=== PATIENT | female | born 1955 | race Caucasian/White ===

== ENCOUNTER 2018-07-25 15:32 | Observation (INO) ==
--- NOTE | 2018-07-25 15:50 | Emergency Department Note ---
Disposition Clinical Impression: Suicidal ideation Failure to thrive Qualifiers: Failure to thrive age range: in adult Qualified Code(s): R62.7 - Adult failure to thrive Disposition: Still a Patient General Adult HPI - General Chief complaint: ED Psychiatric Symptoms Stated complaint: Refusing to eat Time Seen by Provider: 07/25/18 15:44 Source: EMS Limitations: no limitations - History of Present Illness Pain Scale: 0 Past Medical History - Past Medical History Medical history: Reports: no medical history, COPD Psychiatric history: Reports: anxiety, depression - Social History Smoking Status: Current every day smoker Smokeless Tobacco Status: No Alcohol use: Reports: none Drug use: Reports: none Physical Exam - General Limitations: no limitations General appearance: alert Course - Reevaluation(s) Reevaluation #1: ED attending Attestation note Patient was seen with the emergency medicine resident Keven Banerjee: I have independently evaluated the patient and have had [id number] contact with the patient. I have reviewed the history and physical, evaluation and management plan in addition to the pertinent laboratory, ancillary and imaging studies along with consultation recommendations if applicable. I agree with their evaluation, management and disposition.. Briefly: 62-year-old female by EMS for failure to thrive refusing to eat. Patient recently diagnosed with lupus with 72 pounds down normally 80lbs. Status suicidal ideations and her methotrexate to be "I am going to start myself to ". No known pre-existing mental health for eating disorders. Patient is thin and cachectic. Patient will get IV rehydration screening labs mental health consultation with disposition. Disposition pending. Time: 15:48 Vital Signs Temperature 98.2 F 07/25/18 15:38 Pulse Rate 85 07/25/18 15:38 Respiratory Rate 16 07/25/18 15:38 Blood Pressure 116/75 07/25/18 15:38 O2 Sat by Pulse Oximetry 94 07/25/18 15:38 Temperature 98.2 F 07/25/18 15:38 Pulse Rate 85 07/25/18 15:38 Respiratory Rate 16 07/25/18 15:38 Blood Pressure 116/75 07/25/18 15:38 O2 Sat by Pulse Oximetry 94 07/25/18 15:38 Oxygen Delivery Oxygen Delivery Room Air
[2018-07-25 16:18] LABS: Amphetamine Screen,Urine Negative ng/mL (Cutoff=1000); Barbiturate Screen,Urine Negative ng/mL (Cutoff=200); Benzodiazepines Screen,Urine Negative ng/mL (Cutoff=200); Cannabinoid Screen,Urine Negative ng/mL (Cutoff = 50); Cocaine Screen,Urine Negative ng/mL (Cutoff= 300); Opiate Screen,Urine Negative ng/mL (Cutoff=300); Phencyclidine Screen,Urine Negative ng/mL (Cutoff=25)
[2018-07-25 16:19] LABS: Bilirubin,Urine Small (Negative); Blood,Urine Negative (Negative); Clarity,Urine Clear (Clear); Color,Urine Dark Yellow (Yellow); Glucose,Urine (UA) Normal (Normal); Ketones,Urine Negative (Negative); Leukocyte Esterase,Urine Small (Negative); Nitrite,Urine Negative (Negative); Protein,Urine Trace mg/dL (Neg-Trace); Specific Gravity,Urine 1.027 (1.010-1.025); Urobilinogen,Urine Normal (Normal)
[2018-07-25 16:21] LABS: Bacteria,Urine None Seen per hpf (None-Few); Hyaline Casts,Urine None Seen per lpf (None-Few); Squamous Epithelial Cell,Urine Many per lpf (None-Few)
[2018-07-25 16:33] LABS: Basophils % 0.6 %; Eosinophils # 0.1 K/mcL (0.0-0.6); Eosinophils % 2.5 %; Hematocrit 45.7 % (35.3-44.9); Lymphocytes # 1.7 K/mcL (0.6-4.6); Lymphocytes % 52.7 %; Mean Corpuscular HGB Conc 32.8 g/dL (31.6-35.5); Mean Corpuscular Hemoglobin 28.8 pg (28.0-33.3); Mean Corpuscular Volume 87.9 fL (83.0-100.0); Mean Platelet Volume 9.8 fL (9.4-12.4); Monocytes # 0.4 K/mcL (0.0-1.3); Monocytes % 13.2 %; Platelet Count 169 K/mcL (140-400); Red Cell Distribution Width 15.5 % (11.5-14.5)
[2018-07-25 16:52] LABS: Acetaminophen 11 mcg/mL (10-20); Alanine Aminotransferase 11 Units/L (7-52); Albumin 3.8 g/dL (3.5-5.7); Albumin/Globulin Ratio 1.2 (1.1-2.2); Alkaline Phosphatase 57 Units/L (34-104); Aspartate Amino Transferase 23 Units/L (13-39); BUN/Creatinine Ratio 31 (6-26); Bilirubin,Total 0.4 mg/dL (0.3-1.0); Blood Urea Nitrogen 20 mg/dL (8-23); Carbon Dioxide 33 mEq/L (23-29); Chloride 102 mEq/L (98-107); Ethanol < 10 mg/dL (Less than 10); Globulin 3.1 g/dL (2.4-3.5); Glucose 90 mg/dL (70-105); Osmolality,Calculated 290 (280-300); Potassium 3.8 mEq/L (3.5-5.1); Salicylate < 2.5 mg/dL (15.0-30.0); Sodium 139 mEq/L (136-145); Total Protein 6.9 g/dL (6.4-8.9); eGFR For Non-African Americans > 60 (> 60)
--- NOTE | 2018-07-25 17:13 | Emergency Department Note ---
Disposition Clinical Impression: Suicidal ideation Failure to thrive Qualifiers: Failure to thrive age range: in adult Qualified Code(s): R62.7 - Adult failure to thrive Disposition: Admitted As Inpatient Condition: Good General Adult HPI - General Chief complaint: ED Psychiatric Symptoms Stated complaint: Refusing to eat Time Seen by Provider: 07/25/18 15:44 Source: patient, EMS Mode of arrival: EMS Limitations: no limitations Nursing Notes Reviewed: Yes Vital Signs Reviewed: Yes - History of Present Illness HPI Narrative: 62-year-old female with significant past medical history of COPD and lupus presenting to the emergency department chief complaint of failure to thrive and suicidal ideation. According to the patient her baseline weight is approximately 80 pounds. Over the past week to 2 weeks she has lost 8 pounds. She states that she has stopped wanting to eat because she just does not want to deal with her medical issues anymore. She denies homicidal ideation. Denies auditory or visual hallucinations. Denies any history of self-harm. Denies any history of hospitalizations for mental illness. Patient denies any chest pain, shortness of breath or other systemic symptoms. She does state when she eats she feels very full quickly and therefore has not wanted to eat at all. She states she normally drinks coffee throughout the day but that is it. Pain Scale: 0 - Related Data Allergies Allergy/AdvReac Type Severity Reaction Status Date / Time No Known Allergies Allergy Verified 07/25/18 15:48 All systems ED: reviewed and negative except as stated. Constitutional: Denies: fever, chills Eyes: Reports: as per HPI ENT ED: Reports: as per HPI Cardiovascular: Denies: chest pain, palpitations Respiratory: Denies: cough, dyspnea, wheezes Gastrointestinal: Denies: abdominal pain, vomiting, diarrhea Genitourinary: Reports: as per HPI Musculoskeletal: Reports: as per HPI Integumentary: Denies: rash, abrasion Neurological: Denies: weakness, numbness, paresthesias Psychiatric: Reports: depression, suicidal thoughts. Denies: homicidal thoughts , auditory hallucinations, visual hallucinations Endocrine: Reports: as per HPI Hematological/Lymphatic: Reports: as per HPI Allergic/Immunologic: Reports: as per HPI Past Medical History - Past Medical History Attestation: Yes The following information was validated with the patient. Medical history: Reports: no medical history, COPD Psychiatric history: Reports: anxiety, depression - Social History Smoking Status: Current every day smoker Smokeless Tobacco Status: No Alcohol use: Reports: none Drug use: Reports: none Physical Exam - General Limitations: no limitations General appearance: alert, cachectic - Head Head exam: atraumatic, normocephalic, normal inspection - Eye Eye exam: Present: normal appearance. Absent: scleral icterus, conjunctival injection - ENT ENT exam: mucous membranes dry - Neck Neck exam: Present: normal inspection, full ROM. Absent: tenderness, meningismus - Chest Chest inspection: Present: normal inspection, symmetric chest wall rise. Absent : tenderness, rash - Respiratory Respiratory exam: Present: normal lung sounds bilaterally. Absent: respiratory distress, wheezes - Cardiovascular Cardiovascular exam: Present: regular rate, normal rhythm, normal heart sounds - Abdominal Exam Abdominal exam: Present: soft, Non-Tender. Absent: distention, guarding, rebound - Extremities Exam Extremities exam: Present: normal inspection, full ROM - Neurological Exam Neurological exam: Present: alert, oriented X3 - Psychiatric Psychiatric exam: Present: depressed, flat affect, suicidal ideation. Absent: homicidal ideation - Skin Skin exam: Present: warm, intact Course Course Narrative: 62-year-old female presenting to the emergency department with chief complaint of failure to thrive and suicidal ideation. On physical exam patient is cachectic but otherwise within normal limits. Patient's vital signs stable. Patient has a flat, depressed affect in the room. Tearful during exam. We will obtain basic laboratory analysis and then consult our psychiatric services 1A for further evaluation. Disposition will be admission but pending psychiatric versus medical services. Patient agrees with this plan. - Reevaluation(s) Reevaluation #1: Patient's laboratory analysis baseline. No obvious abnormalities. 1A evaluated the patient feels that she does need psychiatric evaluation but needs medical attention first for her failure to thrive. We will plan to admit the patient for failure to thrive with hopes of disposition to psychiatric facility. I spoke with the hospitalist missionary coordinator who agrees to accept the patient at this time. Patient is alert and oriented 3 in the room with stable vital signs. Patient agrees with this plan. Vital Signs Temperature 98.2 F 07/25/18 15:38 Pulse Rate 85 07/25/18 15:38 Respiratory Rate 16 07/25/18 15:38 Blood Pressure 116/75 08/26/18 15:38 O2 Sat by Pulse Oximetry 94 07/25/18 15:38 Temperature 98.2 F 07/25/18 15:38 Pulse Rate 85 07/25/18 15:38 Respiratory Rate 16 07/25/18 15:38 Blood Pressure 116/75 07/25/18 15:38 O2 Sat by Pulse Oximetry 94 07/25/18 15:38 Oxygen Delivery Oxygen Delivery Room Air Medical Decision Making - Lab Data Result diagrams: 07/25/18 16:22 07/25/18 16:22 Lab Results 07/25/18 07/25/18 07/25/18 Range/Units 15:56 15:56 16:22 WBC 3.2 L (4.3-11.1) K/mcL RBC 5.20 H (3.82-4.97) M/mcL Hgb 15.0 (11.5-15.4) g/dL Hct 45.7 H (35.3-44.9) % MCV 87.9 (83.0-100.0) fL MCH 28.8 (28.0-33.3) pg MCHC 32.8 (31.6-35.5) g/dL RDW 15.5 H (11.5-14.5) % Plt Count 169 (140-400) K/mcL MPV 9.8 (9.4-12.4) fL Immature Gran % 0.0 (0-4) % Seg Neutrophils % 31.0 % Lymphocytes % 52.7 % Monocytes % 13.2 % Eosinophils % 2.5 % Basophils % 0.6 % Neutrophils # 1.0 L (1.6-8.9) K/mcL Lymphocytes # 1.7 (0.6-4.6) K/mcL Monocytes # 0.4 (0.0-1.3) K/mcL Eosinophils # 0.1 (0.0-0.6) K/mcL Basophils # 0.0 (0.0-0.2) K/mcL Sodium (136-145) mEq/L Potassium (3.5-5.1) mEq/L Chloride (98-107) mEq/L Carbon Dioxide (23-29) mEq/L BUN (8-23) mg/dL Creatinine (0.60-1.20) mg/dL Est GFR ( Amer) (> 60) Est GFR (Non-Af Amer) (> 60) BUN/Creatinine Ratio (6-26) Glucose (70-105) mg/dL Calculated Osmolality (280-300) Calcium (8.6-10.3) mg/dL Total Bilirubin (0.3-1.0) mg/dL AST (13-39) Units/L ALT (7-52) Units/L Alkaline Phosphatase (34-104) Units/L Serum Total Protein (6.4-8.9) g/dL Albumin (3.5-5.7) g/dL Globulin (2.4-3.5) g/dL Albumin/Globulin Ratio (1.1-2.2) Urine Color Dark Yellow (Yellow) Urine Clarity Clear (Clear) Urine pH 6.0 (5.0-8.0) pH Units Ur Specific [place] 1.027 H (1.010-1.025) Urine Protein Trace (Neg-Trace) mg/dL Urine Glucose (UA) Normal (Normal) mg/dL Urine Ketones Negative (Negative) mg/dL Urine Blood Negative (Negative) Urine Nitrite Negative (Negative) Urine Bilirubin Small H (Negative) Urine Urobilinogen Normal (Normal) mg/dL Ur Leukocyte Esterase Small H (Negative) Urine Microscopic RBC 5-15 H (0-3) per hpf Urine Microscopic WBC 5-15 H (0-3) per hpf Ur Squamous Epith Cells Many H (None-Few) per lpf Urine Bacteria None Seen (None-Few) per hpf Hyaline Casts None Seen (None-Few) per lpf Ur Culture Indicated? NO. A (NO) Salicylates (15.0-30.0) mg/dL Urine Opiates Screen Negative (Crenwh=091) ng/mL Acetaminophen (10-20) mcg/mL Ur Barbiturates Screen Negative (Muakno=476) ng/mL Ur Phencyclidine Scrn Negative (Cutoff=25) ng/mL Ur Amphetamines Screen Negative (Xmfcrk=1103) ng/mL U Benzodiazepines Scrn Negative (Bvwzmt=569) ng/mL Urine Cocaine Screen Negative (Cutoff= 300) ng/mL U Marijuana (THC) Screen Negative (Cutoff = 50) ng/mL Ur Drug Screen Interp See Below Ethyl Alcohol (Less than 10) mg/dL 07/25/18 Range/Units 16:22 WBC (4.3-11.1) K/mcL RBC (3.82-4.97) M/mcL Hgb (11.5-15.4) g/dL Hct (35.3-44.9) % MCV (83.0-100.0) fL MCH (28.0-33.3) pg MCHC (31.6-35.5) g/dL RDW (11.5-14.5) % Plt Count (140-400) K/mcL MPV (9.4-12.4) fL Immature Gran % (0-4) % Seg Neutrophils % % Lymphocytes % % Monocytes % % Eosinophils % % Basophils % % Neutrophils # (1.6-8.9) K/mcL Lymphocytes # (0.6-4.6) K/mcL Monocytes # (0.0-1.3) K/mcL Eosinophils # (0.0-0.6) K/mcL Basophils # (0.0-0.2) K/mcL Sodium 139 (136-145) mEq/L Potassium 3.8 (3.5-5.1) mEq/L Chloride 102 (98-107) mEq/L Carbon Dioxide 33 H (23-29) mEq/L BUN 20 (8-23) mg/dL Creatinine 0.65 (0.60-1.20) mg/dL Est GFR ( Amer) > 60 (> 60) Est GFR (Non-Af Amer) > 60 (> 60) BUN/Creatinine Ratio 31 H (6-26) Glucose 90 (70-105) mg/dL Calculated Osmolality 290 (280-300) Calcium 9.0 (8.6-10.3) mg/dL Total Bilirubin 0.4 (0.3-1.0) mg/dL AST 23 (13-39) Units/L ALT 11 (7-52) Units/L Alkaline Phosphatase 57 (34-104) Units/L Serum Total Protein 6.9 (6.4-8.9) g/dL Albumin 3.8 (3.5-5.7) g/dL Globulin 3.1 (2.4-3.5) g/dL Albumin/Globulin Ratio 1.2 (1.1-2.2) Urine Color (Yellow) Urine Clarity (Clear) Urine pH (5.0-8.0) pH Units Ur Specific [place] (1.010-1.025) Urine Protein (Neg-Trace) mg/dL Urine Glucose (UA) (Normal) mg/dL Urine Ketones (Negative) mg/dL Urine Blood (Negative) Urine Nitrite (Negative) Urine Bilirubin (Negative) Urine Urobilinogen (Normal) mg/dL Ur Leukocyte Esterase (Negative) Urine Microscopic RBC (0-3) per hpf Urine Microscopic WBC (0-3) per hpf Ur Squamous Epith Cells (None-Few) per lpf Urine Bacteria (None-Few) per hpf Hyaline Casts (None-Few) per lpf Ur Culture Indicated? (NO) Salicylates < 2.5 L (15.0-30.0) mg/dL Urine Opiates Screen (Ltsphk=639) ng/mL Acetaminophen 11 (10-20) mcg/mL Ur Barbiturates Screen (Dgcfjr=096) ng/mL Ur Phencyclidine Scrn (Cutoff=25) ng/mL Ur Amphetamines Screen (Pjnlnn=9724) ng/mL U Benzodiazepines Scrn (Tqaeig=909) ng/mL Urine Cocaine Screen (Cutoff= 300) ng/mL U Marijuana (THC) Screen (Cutoff = 50) ng/mL Ur Drug Screen Interp Ethyl Alcohol < 10 (Less than 10) mg/dL
[2018-07-25] MEDS ORDERED: Naloxone 0.4 MG/ML INJ IVP PRN (21:35)
--- NOTE | 2018-07-25 21:46 | Internal Med History&Physical ---
Date of Encounter: 07/25/18 Time of Encounter: 21:15 Internal Medicine - H&P: HPI Chief complaint: depression; suicidal; anorexia Admitted From: Emergency Dept Plans for Post Hospital Care: Home History of present illness: Ms. Godfrey is a 62 year old female who presents to the ER tonight with complaints of severe depression, "wanting to ", anorexia, and malaise. She was admitted to hospitalist service because of the weight loss and severe malnutrition. Additionally, a consult was placed to psychiatry through the ER as well. Upon my assessment of the patient, she is quite tearful, severely malnourished, and confirms that she has no further hope and wishes to . She has no suicidal plan, but she reiterated that she wants to . She attributes her depression to multiple things but, most recently, to the recent diagnosis of lupus. She has a history of lupus in the past, but she was told some years ago that she does not have lupus. However, her diagnosis of lupus was again confirmed and this has "pushed me over the edge". She confirms appetite loss and anorexia. It appears that her anorexia is not intentional but that it is a result of her severe depression. Nonetheless, she is horribly malnourished and has lost 8 pounds in the last several days. Patient states she has been treated for depression but that her medications have not worked. She has not seen a psychiatrist or counselor in quite some time. Because of the above findings and history, I pink-slipped patient and called psychiatry unit requesting consultation tomorrow. She is already under suicide watch and has a 24-hour sitter present. Past Med Surg Social Fam HX - Past Medical History Attestation: Yes The following information was validated with the patient. Source: patient, other (ER records) Medical history: COPD Additional medical history: lupus Psychiatric history: anxiety, depression - Past Surgical History Surgical History: no surgical history - Social History Smoking Status: Current every day smoker Packs per day: 1 Smokeless Tobacco Status: No Alcohol use: none Drug use: none Current living situation: Home, With Family Activity Level: Independent ambulation Recent Out of Country Travel Within the Last 8 Weeks: No - Family History Mother History Unknown: Yes Father History Unknown: Yes (+ FH w depression/anxiety) Internal Medicine - H&P: Meds 3 Allergy/AdvReac Type Severity Reaction Status Date / Time No Known Allergies Allergy Verified 07/25/18 15:48 - Constitutional Constitutional: fatigue, malaise, weight loss, no chills, no fever(s) - EENT Eyes: no change in vision Ears: no ear pain Nose, mouth and throat: no nasal congestion, no sore throat - Cardiovascular Cardiovascular ROS IM: no chest pain, no dyspnea - Respiratory Respiratory: no hemoptysis, no chest congestion - Gastrointestinal Gastrointestinal: no abdominal pain, no diarrhea, no hematemesis, no hematochezia, no melena, no nausea, no vomiting - Genitourinary Genitourinary: no dysuria, no flank pain - Musculoskeletal Musculoskeletal ROS IM: arthralgias, no back pain, no joint swelling - Integumentary Integumentary IM: no rash, no jaundice - Neurological Neurological ROS: no dizziness, no focal weakness, no frequent falls, no headache(s) - Psychiatric Psychiatric: anhedonia, anxiety, change in appetite, depression, suicidal ideation - Endocrine Endocrine IM: no polydipsia, no polyuria - Allergic/Immunologic Allergic/Immunologic: no GI upset with certain foods - Constitutional Vitals: Temp Pulse Resp BP Pulse Ox 98.0 F 71 15 154/88 90 07/25/18 20:44 07/25/18 20:44 07/25/18 20:44 07/25/18 20:44 07/25/18 20:44 General appearance: Present: cooperative, A&O X 3, pleasant, underweight, answers questions appropriately Exam: tearful; severely depressed - Head Head exam: Present: atraumatic, normal inspection - Eye Eye exam: Present: EOMI, PERRL. Absent: scleral icterus Pupils: Present: normal accommodation - ENT ENT exam: Present: mucous membranes dry, normal exam, normal oropharynx - Neck Neck exam general surgery: Present: full ROM, supple. Absent: tenderness, nuchal rigidity, thyromegaly - Respiratory Respiratory exam: Present: CTAB. Absent: chest wall tenderness, rales, rhonchi , wheezes - Cardiovascular Cardiovascular exam: Present: RRR, +S1, +S2. Absent: diastolic murmur, systolic murmur - GI/Abdominal GI/Abdominal exam: Present: normal bowel sounds, soft. Absent: hepatomegaly, splenomegaly, tenderness - Extremities Exam Extremities exam: Present: full ROM, warm, radial pulses palpable and symmetrical. Absent: calf tenderness, joint swelling Additional comments: muscle wasting/atrophy of arms/leg - Back Exam Back exam: Absent: CVA tenderness (L), CVA tenderness (R) - Neurological Exam Neurological exam: Present: alert, CN II-XII intact, oriented X3, no focal deficits - Psychiatric Psychiatric exam: Present: depressed, suicidal ideation - Skin Skin exam: Present: dry, warm. Absent: rash Internal Med - H&P Results - Labs CBC & Chem 7: 07/25/18 16:22 07/25/18 16:22 - Assessment and plan (1) Suicidal ideation Current Visit: Yes Status: Acute Assessment and plan: 1. Will place in suicide watch. 2. 24 hour sitter. 3. Consult psychiatry. (2) Anorexia Current Visit: Yes Status: Chronic Assessment and plan: 1. Will hydrate with IVF, correct electrolytes, and monitor on telemetry given risk for hypokalemia. 2. Will order baseline EKG. 3. Psychiatry consult as above. (3) Severe malnutrition Current Visit: Yes Status: Acute Assessment and plan: 1. Will order protein, albumin, prealbumin levels. 2. Likely due to depression. 3. Will likely need nutrition consult but may not be effective until underlying depression treated. (4) DVT prophylaxis Current Visit: Yes Status: Acute Assessment and plan: 1. Will place on Heparin 3000 units SQ Q12H. - Time Spent With Patient Total time spent is greater than 50% in coordination of care (as documented) at patient's floor/unit and/or counseling patient:
[2018-07-25] MEDS ORDERED: Melatonin 3 MG TABLET PO ONE (21:55)
[2018-07-25] MEDS ORDERED: clonazePAM 0.5 MG TABLET PO ONE (22:14)
[2018-07-25] MEDS: Nicotine 14 MG PATCH.TD24 TD SCH (22:27)
[2018-07-25] MEDS: *HR* Heparin 5,000 UNIT/ML VIAL SQ SCH (22:27)
[2018-07-25] MEDS: 0.9 % Sodium Chloride w KCl 20 MEQ/1,000 ML MLS IVC SCH (22:28)
[2018-07-26] MEDS: Ipratropium/Albuterol Neb 3 ML IH PRN ×3 (01:09→21:56)
[2018-07-26 04:58] LABS: Basophils % 0.9 %; Eosinophils # 0.1 K/mcL (0.0-0.6); Eosinophils % 2.8 %; Hematocrit 45.2 % (35.3-44.9); Hemoglobin 14.5 g/dL (11.5-15.4); Mean Corpuscular HGB Conc 32.1 g/dL (31.6-35.5); Mean Corpuscular Hemoglobin 28.3 pg (28.0-33.3); Mean Corpuscular Volume 88.1 fL (83.0-100.0); Mean Platelet Volume 9.8 fL (9.4-12.4); Monocytes # 0.5 K/mcL (0.0-1.3); Monocytes % 14.2 %; Neutrophils # 0.7 K/mcL (1.6-8.9); Platelet Count 160 K/mcL (140-400); Red Blood Count 5.13 M/mcL (3.82-4.97); Red Cell Distribution Width 15.5 % (11.5-14.5); Segmented Neutrophils % 22.1 %
[2018-07-26 05:20] LABS: Alanine Aminotransferase 11 Units/L (7-52); Albumin 3.5 g/dL (3.5-5.7); Albumin/Globulin Ratio 1.2 (1.1-2.2); Alkaline Phosphatase 51 Units/L (34-104); Aspartate Amino Transferase 23 Units/L (13-39); BUN/Creatinine Ratio 31 (6-26); Bilirubin,Total 0.5 mg/dL (0.3-1.0); Blood Urea Nitrogen 15 mg/dL (8-23); Calcium 8.7 mg/dL (8.6-10.3); Carbon Dioxide 29 mEq/L (23-29); Chloride 107 mEq/L (98-107); Chol/HDL Ratio 2.3 (0-4.9); Cholesterol 121 mg/dL (< 200); Glucose 88 mg/dL (70-105); HDL Cholesterol 52 mg/dL (40-59); LDL Cholesterol,Calculated 52 mg/dL (0-99); Osmolality,Calculated 288 (280-300); Potassium 4.6 mEq/L (3.5-5.1); Sodium 139 mEq/L (136-145); Total Protein 6.5 g/dL (6.4-8.9); Triglycerides 84 mg/dL (< 150); eGFR For Non-African Americans > 60 (> 60)
[2018-07-26] MEDS: *HR* Heparin 5,000 UNIT/ML VIAL SQ SCH ×2 (06:02→17:01)
[2018-07-26] MEDS: clonazePAM 1 MG TABLET PO SCH ×3 (09:49→20:27)
[2018-07-26] MEDS: 0.9 % Sodium Chloride w KCl 20 MEQ/1,000 ML MLS IVC SCH (12:39)
--- NOTE | 2018-07-26 13:31 | Internal Med Progress Note ---
Hospitalist Progress Note - Encounter Date of Encounter: 07/26/18 Time of Encounter: 13:29 - Subjective Interval History: seen and examined at bedside, continues to state that she would rather than live in her current condition. She has concerns that her health has been declining d/t lupus and d/t that fact that she does not have any appetite or energy. Denies any additional complaints. - Exam Vitals: Temp Pulse Resp BP Pulse Ox 98.8 F 80 19 116/70 92 07/26/18 11:19 07/26/18 11:19 07/26/18 11:19 07/26/18 11:19 07/26/18 11:19 Exam: PHYSICAL EXAMINATION: GENERAL: The patient is a cachectic appearing female in mild distress who is alert and oriented x3. HEENT: Head is normocephalic and atraumatic. Extraocular muscles are intact. Pupils are equal, round, and reactive to light and accommodation. Nares appeared normal. Mouth is well hydrated and without lesions. Mucous membranes are moist. NECK: Supple. No carotid bruits. No lymphadenopathy or thyromegaly. LUNGS: Clear to auscultation. HEART: Regular rate and rhythm without murmur. ABDOMEN: Soft, nontender, and nondistended. Positive bowel sounds. No hepatosplenomegaly was noted. EXTREMITIES: Without any cyanosis, clubbing, rash, lesions or edema. NEUROLOGIC: Cranial nerves II through XII are grossly intact. PSYCHIATRIC: Flat affect, but denies suicidal or homicidal ideations, but does endorse that she would rather give up and d/t her current condition SKIN: No ulceration or induration present. - Assessment and Plan (1) Suicidal ideation Current Visit: Yes Status: Acute Assessment and Plan: Reporting that she has given up and would like to denies any SI or HI per my assessment; denies any intent, or plan continue w/sitter until cleared by psych suicide precautions (2) Anorexia Current Visit: Yes Status: Chronic Assessment and Plan: Rehydrate with IVF, correct electrolytes PRN Regular diet megace nutrition consult psychiatry consult PT/OT consult tele monitor and daily lab (3) Severe malnutrition Current Visit: Yes Status: Acute Assessment and Plan: Reporting no appetite; decrease oral and caloric intake resulting in malnutrition also has h/o depression which is contributing to poor appetite Prealbumin 15.1, protein 6.5 and albumin 3.5 consult nutrition for dietary recommendations start 40mg megace daily now, increase as tolerated (4) Depression Current Visit: Yes Status: Acute Assessment and Plan: continue antidepressants psych to see in consultation; defer to psych for medication adjustments (5) DVT prophylaxis Current Visit: Yes Status: Acute Assessment and Plan: continue sc heparin - Time Spent with Patient Total time spent is greater than 50% in coordination of care (as documented) at patient's floor/unit and/or counseling patient: less than 15 minutes Plan of Care Discussed with: patient Internal Medicine: Result - Labs CBC & Chem 7: 07/26/18 04:04 07/26/18 04:04 Labs: Short CBC 07/26/18 Range/Units 04:04 WBC 3.3 L (4.3-11.1) K/mcL Hgb 14.5 (11.5-15.4) g/dL Hct 45.2 H (35.3-44.9) % Plt Count 160 (140-400) K/mcL Neutrophils # 0.7 L (1.6-8.9) K/mcL BMP 07/26/18 04:04 Sodium 139 Potassium 4.6 Chloride 107 Carbon Dioxide 29 BUN 15 Creatinine 0.48 L Glucose 88 Calcium 8.7 Liver Function 07/26/18 Range/Units 04:04 Total Bilirubin 0.5 (0.3-1.0) mg/dL AST 23 (13-39) Units/L ALT 11 (7-52) Units/L Alkaline Phosphatase 51 (34-104) Units/L Albumin 3.5 (3.5-5.7) g/dL Consult Discharge Plan - Plan Referrals: NONE,PCP [Primary Care Provider] - Jeana Nash MD [Family Provider] - (4) Depression Qualifiers: Depression Type: major depressive disorder Major depression recurrence: recurrent Active/Remission status: currently active Major depression episode severity: severe Psychotic features: without psychotic features Qualified Code (s): F33.2 - Major depressive disorder, recurrent severe without psychotic features
--- NOTE | 2018-07-26 15:35 | Consult Note ---
Date of Encounter: 07/26/18 Time of Encounter: 15:00 Assessment & Recommendation (1) Major depressive disorder, recurrent severe without psychotic features Current visit: Yes Status: Acute History of Present Illness Patient: new to practice Requesting Physician: Roland Martinez MD Reason for consult: FAILURE TO THRIVE History of present illness: Ms. Godfrey is a 62 year old female This patient has been previously seen by members of our team. Her chief complaint is I was told that I had lupus. I was told that it was affecting my organs. If I go home I am just going to sit and not doing anything. The patient has been previously seen and evaluated. The current consult is to evaluate whether she has major depression. She has low mood and lack of appetite hopelessness helplessness diminished activity and she does not have suicidal ideation but she does not want to eat she acknowledges a passive wish to . This condition is known as inanaTION. She has a sitter and today she was able to eat a little bit today she was started on the medicine Megace to help with her appetite. The patient tells me that she has been on Klonopin for many years. Now she is planning to go to [facility] in order to taper off this. However the patient continues to have depressive symptoms. When asked specifically she does not endorse mood congruent psychotic symptoms such as delusion of guilt delusional poverty delusion of passive bitty. She does not endorse active homicidal or suicidal ideation. Nonetheless patient has had dramatic decline in weight. She does not have somatic delusions and seems to understand a little bit about lupus. Her primary concern was whether a lupus specialist, a milk truck driver could be found near her home. The patient previously had mental health [facility] in [place] but then could not get a ride. Her primary care physician is currently looking for a milk truck driver. We were able to find at least 1 or 2 i in her local area. CC: Roland Martinez MD Past Med Surg Social Fam HX - Past Medical History Medical history: COPD - Past Psychiatric History Psychiatric history: Reports: depression Family psychiatric history: Unknown Family History of Suicide: Unknown - Past Surgical History Surgical History: no surgical history - Social History Smoking Status: Current every day smoker Smokeless Tobacco Status: No Alcohol use: none Drug use: none Occupational status: previously employed Current living situation: Home - Independent, Home Activity Level: Independent ambulation Recent Out of Country Travel Within the Last 8 Weeks: No Exposure or Possible Exposure to Illness During Travel: No - Family History Mother History Unknown: Yes Father History Unknown: Yes (+ FH w depression/anxiety) Medications & Allergies Albuterol Neb [Proventil Neb] 2.5 mg IH TID PRN 07/26/18 [History] Albuterol Sulfate [Ventolin Hfa] 1 puff IH Q6H PRN 07/26/18 [History] Budesonide [Pulmicort Flexhaler 90mcg] 2 puff IH BID 07/26/18 [History] Mirtazapine [Remeron] 15 - 30 mg PO HS PRN 07/26/18 [History] Multivitamin [One Daily Essential] 1 tab PO DAILY 07/26/18 [History] OLANZapine [Zyprexa] 10 mg PO HS 07/26/18 [History] OXcarbazepine [Oxcarbazepine] 300 mg PO BID 07/26/18 [History] Salmeterol Xinafoate [Serevent Diskus] 1 puff IH BID 07/26/18 [History] Tiotropium [place] [Spiriva Respimat] 1 puff IH DAILY 07/26/18 [History] clonazePAM [Klonopin] 1 mg PO TID PRN 07/26/18 [History] 3 Allergy/AdvReac Type Severity Reaction Status Date / Time No Known Allergies Allergy Verified 07/25/18 15:48 Review of Systems Constitutional: Reports: weakness, weight change Psychiatric: Reports: change in appetite, anhedonia, difficulty concentrating, hopelessness Psychiatry Exam - Constitutional Vitals: Temp Pulse Resp BP Pulse Ox 98.8 F 80 19 116/70 92 07/26/18 11:19 07/26/18 11:19 07/26/18 11:19 07/26/18 11:19 07/26/18 11:19 General appearance: age & developmentally appropriate, thin - Musculoskeletal Gait: slow Station: stiff Strength & Tone: mild weakness - Psychiatric Patient Orientation: Yes Person, Yes Time, Yes Place, Yes Circumstance Level of alertness: Alert Behavior: guarded Psychomotor activity: Slowed Eye Contact: Maintains Eye Contact Mood Description: Depressed Affect description: congruent with mood Speech Volume: Normal Speech pattern: normal rate Language & Vocabulary: consistent with education Thought Process: Logical Thought Content: Yes Preoccupation Perceptual Disturbances: No Auditory hallucinations, No Visual hallucinations Attention Span Ability: Capable of Focused Attention Memory Description: Grossly Intact Patient Reliability: Reliable Historian Fund of knowledge: Yes average Intelligence Estimate: Average Judgment: Limited Insight: Minimal Results - Labs Labs: Laboratory Last Values WBC 3.3 K/mcL (4.3-11.1) L 07/26/18 04:04 RBC 5.13 M/mcL (3.82-4.97) H 07/26/18 04:04 Hgb 14.5 g/dL (11.5-15.4) 07/26/18 04:04 Hct 45.2 % (35.3-44.9) H 07/26/18 04:04 MCV 88.1 fL (83.0-100.0) 07/26/18 04:04 MCH 28.3 pg (28.0-33.3) 07/26/18 04:04 MCHC 32.1 g/dL (31.6-35.5) 07/26/18 04:04 RDW 15.5 % (11.5-14.5) H 07/26/18 04:04 Plt Count 160 K/mcL (140-400) 07/26/18 04:04 MPV 9.8 fL (9.4-12.4) 07/26/18 04:04 Immature Gran % 0.0 % (0-4) 07/26/18 04:04 Seg Neutrophils % 22.1 % 07/26/18 04:04 Lymphocytes % 60.0 % 07/26/18 04:04 Monocytes % 14.2 % 07/26/18 04:04 Eosinophils % 2.8 % 07/26/18 04:04 Basophils % 0.9 % 07/26/18 04:04 Neutrophils # 0.7 K/mcL (1.6-8.9) L 07/26/18 04:04 Lymphocytes # 2.0 K/mcL (0.6-4.6) 07/26/18 04:04 Monocytes # 0.5 K/mcL (0.0-1.3) 07/26/18 04:04 Eosinophils # 0.1 K/mcL (0.0-0.6) 07/26/18 04:04 Basophils # 0.0 K/mcL (0.0-0.2) 07/26/18 04:04 Sodium 139 mEq/L (136-145) 07/26/18 04:04 Potassium 4.6 mEq/L (3.5-5.1) 07/26/18 04:04 Chloride 107 mEq/L (98-107) 07/26/18 04:04 Carbon Dioxide 29 mEq/L (23-29) 07/26/18 04:04 BUN 15 mg/dL (8-23) 07/26/18 04:04 Creatinine 0.48 mg/dL (0.60-1.20) L 07/26/18 04:04 Est GFR ( Amer) > 60 (> 60) 07/26/18 04:04 Est GFR (Non-Af Amer) > 60 (> 60) 07/26/18 04:04 BUN/Creatinine Ratio 31 (6-26) H 07/26/18 04:04 Glucose 88 mg/dL (70-105) 07/26/18 04:04 Calculated Osmolality 288 (280-300) 07/26/18 04:04 Calcium 8.7 mg/dL (8.6-10.3) 07/26/18 04:04 Phosphorus 3.9 mg/dL (2.7-4.5) 07/25/18 16:21 Magnesium 2.0 mg/dL (1.6-2.6) 07/26/18 04:04 Total Bilirubin 0.5 mg/dL (0.3-1.0) 07/26/18 04:04 AST 23 Units/L (13-39) 07/26/18 04:04 ALT 11 Units/L (7-52) 07/26/18 04:04 Alkaline Phosphatase 51 Units/L (34-104) 07/26/18 04:04 Serum Total Protein 6.5 g/dL (6.4-8.9) 07/26/18 04:04 Albumin 3.5 g/dL (3.5-5.7) 07/26/18 04:04 Globulin 3.0 g/dL (2.4-3.5) 07/26/18 04:04 Albumin/Globulin Ratio 1.2 (1.1-2.2) 07/26/18 04:04 Prealbumin 15.1 mg/dL (17.0-34.0) L 07/26/18 04:04 Triglycerides 84 mg/dL (< 150) 07/26/18 04:04 Cholesterol 121 mg/dL (< 200) 07/26/18 04:04 LDL Cholesterol, Calc 52 mg/dL (0-99) 07/26/18 04:04 VLDL Cholesterol, Calc 17 mg/dL (< 31) 07/26/18 04:04 HDL Cholesterol 52 mg/dL (40-59) 07/26/18 04:04 Cholesterol/HDL Ratio 2.3 (0-4.9) 07/26/18 04:04 TSH 1.524 mcIU/mL (0.340-5.600) 07/26/18 04:04 Urine Color Dark Yellow (Yellow) 07/25/18 15:56 Urine Clarity Clear (Clear) 07/25/18 15:56 Urine pH 6.0 pH Units (5.0-8.0) 07/25/18 15:56 Ur Specific [place] 1.027 (1.010-1.025) H 07/25/18 15:56 Urine Protein Trace mg/dL (Neg-Trace) 07/25/18 15:56 Urine Glucose (UA) Normal mg/dL (Normal) 07/25/18 15:56 Urine Ketones Negative mg/dL (Negative) 07/25/18 15:56 Urine Blood Negative (Negative) 07/25/18 15:56 Urine Nitrite Negative (Negative) 07/25/18 15:56 Urine Bilirubin Small (Negative) H 07/25/18 15:56 Urine Urobilinogen Normal mg/dL (Normal) 07/25/18 15:56 Ur Leukocyte Esterase Small (Negative) H 07/25/18 15:56 Urine Microscopic RBC 5-15 per hpf (0-3) H 07/25/18 15:56 Urine Microscopic WBC 5-15 per hpf (0-3) H 07/25/18 15:56 Ur Squamous Epith Cells Many per lpf (None-Few) H 07/25/18 15:56 Urine Bacteria None Seen per hpf (None-Few) 07/25/18 15:56 Hyaline Casts None Seen per lpf (None-Few) 07/25/18 15:56 Ur Culture Indicated? NO. (NO) A 07/25/18 15:56 Salicylates < 2.5 mg/dL (15.0-30.0) L 07/25/18 16:22 Urine Opiates Screen Negative ng/mL (Evejtw=801) 07/25/18 15:56 Acetaminophen 11 mcg/mL (10-20) 07/25/18 16:22 Ur Barbiturates Screen Negative ng/mL (Vyzykx=592) 07/25/18 15:56 Ur Phencyclidine Scrn Negative ng/mL (Cutoff=25) 07/25/18 15:56 Ur Amphetamines Screen Negative ng/mL (Fhslnx=9459) 07/25/18 15:56 U Benzodiazepines Scrn Negative ng/mL (Qzinkb=248) 07/25/18 15:56 Urine Cocaine Screen Negative ng/mL (Cutoff= 300) 07/25/18 15:56 U Marijuana (THC) Screen Negative ng/mL (Cutoff = 50) 07/25/18 15:56 Ur Drug Screen Interp See Below 07/25/18 15:56 Ethyl Alcohol < 10 mg/dL (Less than 10) 07/25/18 16:22 Consult Discharge Plan - Plan Referrals: Jeana Nash MD [Family Provider] - NONE,PCP [Primary Care Provider] -
[2018-07-26] MEDS: Melatonin 3 MG TABLET PO SCH (20:27)
[2018-07-26] MEDS: Nicotine 14 MG PATCH.TD24 TD SCH (20:27)
[2018-07-27] MEDS: *HR* Heparin 5,000 UNIT/ML VIAL SQ SCH ×2 (06:09→18:09)
[2018-07-27] MEDS: clonazePAM 1 MG TABLET PO SCH ×2 (09:23→15:11)
[2018-07-27] MEDS ORDERED: Acetaminophen 325 MG TABLET PO PRN (10:29)
[2018-07-27] MEDS ORDERED: Mirtazapine 15 MG TABLET PO PRN (14:42)
--- NOTE | 2018-07-27 15:15 | Internal Med Progress Note ---
Hospitalist Progress Note - Encounter Date of Encounter: 07/27/18 Time of Encounter: 09:15 - Subjective Interval History: Patient was seen and assessed at bedside at 9:15 AM. She is alert, awake, oriented, pleasant, engaging. She engages in good eye contact. Patient has requested to go to [facility] after discharge, she has discovered since this evaluation that it has closed, psychiatric social worker is making other arrangements. She states that on July 29 she is to have an appointment at [facility]. This is her initial visit and she is concerned that she will be hospitalized and we will not be able to see them as they would discharge her from the practice before she even gets her first visit. She states that her sister will be in contact with them and will make it clear the patient is hospitalized and will follow-up when she is discharged. She denies any headache , nausea vomiting, diarrhea, vision changes, neck pain, chest pain, shortness of breath, abdominal pain, peripheral edema, or dizziness. - Exam Vitals: Temp Pulse Resp BP Pulse Ox 98.1 F 74 15 114/75 90 07/27/18 15:00 07/27/18 15:00 07/27/18 15:00 07/27/18 15:07/27/18 15:00 Exam: General: Pt resting quietly on bed, no distress. Patient is cachectic and frail appearing. Skin: pwd, no rashes, lesions, redness Neurological: Pt is alert and awake, oriented x 3, Speech is clear, PERRLA, EOMI , no nystagmus, no pronator drift. strength equal x 4 extremities HEENT: mucous mumbranes moist, no conjuctival pallor Neck: supple, no tracheal deviation, no lymphadenopathy, tenderness, no thyromegaly Heart: S1S2 heard without gallops, clicks, murmurs, no bradycardia or tachycardia, pt has no peripheral edema, pedal and radial pulses palpable bilaterally. Lungs: clear throughout without wheezing, rales, or ronchi, respirations are unlabored Abdomen: soft and non tender with bowel sound present, no hepatomegaly. Psych: Normal affect with good eye contact - Assessment and Plan (1) Suicidal ideation Current Visit: Yes Status: Acute Assessment and Plan: Reporting on admission that she has given up and would like to , currently denies suicidal ideations. denies any intent, or plan She has been evaluated by psychiatry, he has recommended continued sitter throughout admission. Continue suicide precautions Pt will need inpatient psychiatric evaluation, [facility] staff is working on placement. Pt is medically cleared for discharged when placement is available. (2) Anorexia Current Visit: Yes Status: Chronic Assessment and Plan: Rehydrate with IVF, correct electrolytes PRN Regular diet Continue Megace 40mg po daily Nutrition consulted, they have started Magic Cups BID Psychiatry consulted, plan as above. Continue tele monitor and daily labs (3) Severe malnutrition Current Visit: Yes Status: Chronic Assessment and Plan: Reporting no appetite since diagnosed with SLE; decrease oral and caloric intake resulting in malnutrition also has h/o depression and anxiety, which is contributing to poor appetite Prealbumin 15.1, protein 6.5 and albumin 3.5 Nutrition has been consulted and will add magic cups BID. start 40mg megace daily now, increase as tolerated Continue regular diet. (4) Depression Current Visit: Yes Status: Acute Assessment and Plan: Continue antidepressants Mirtazapine has been added, 7.5mg po qhs Will begin to decrease Klonipin by 0.25mg po TID, currently on 1mg po TID. Plan as above (5) DVT prophylaxis Current Visit: Yes Status: Acute Assessment and Plan: Continue SQ heparin DVT Prophylaxis: Heparin SQ - Time Spent with Patient Total time spent is greater than 50% in coordination of care (as documented) at patient's floor/unit and/or counseling patient: less than 15 minutes Plan of Care Discussed with: patient Internal Medicine: Result - Labs CBC & Chem 7: 07/26/18 04:04 07/26/18 04:04 Consult Discharge Plan - Plan Referrals: Jeana Nash MD [Family Provider] - NONE,PCP [Primary Care Provider] - (4) Depression Qualifiers: Depression Type: major depressive disorder Major depression recurrence: recurrent Active/Remission status: currently active Major depression episode severity: severe Psychotic features: without psychotic features Qualified Code (s): F33.2 - Major depressive disorder, recurrent severe without psychotic features
--- NOTE | 2018-07-27 16:49 | Consult Note ---
Date of Encounter: 07/27/18 Time of Encounter: 15:30 Assessment & Recommendation (1) Major depressive disorder, recurrent severe without psychotic features Current visit: Yes Status: Acute History of Present Illness Patient: known to practice within the last 3 years Requesting Physician: Roland Martinez MD Reason for consult: return for depression History of present illness: Ms. Godfrey is a 62 year old female Chief complaint I can go to [place] it is too far. I note that the one to take me off Klonopin but I will just put him something else History of present illness. The patient was seen for follow-up. She continues to have a variety of complaints. She was started on mirtazapine 15 mg daily at bedtime she has been asking for sleeping pill. Today she had confrontational memory testing and she appears to have memory deficits especially in short-term memory. Her sister was contacted and was agreeable to the patient going to a [facility] psych unit. This patient does not handle her own checkbook she gets a disability for a medical condition but she has her sister take care of the money orders to help pay her bills. The patient had fair abstraction and reasoning capabilities but her cognitive dysfunction could arise either from major depression, poor nutrition or the disease process. We recommend hospitalization in a geriatric psychiatric unit. I had previously recommended one [facility] however another inpatient geriatric psychiatry unit could be selected for the patient. While I would encourage her to go as a voluntary patient to address the issues that I have outlined. The patient could be transferred under a pink slip or involuntarily for ongoing treatment CC: Roland Martinez MD Past Med Surg Social Fam HX - Past Medical History Medical history: COPD - Past Surgical History Surgical History: no surgical history - Social History Smoking Status: Current every day smoker Smokeless Tobacco Status: No Alcohol use: none Drug use: none - Family History Mother History Unknown: Yes Father History Unknown: Yes (+ FH w depression/anxiety) Medications & Allergies Albuterol Neb [Proventil Neb] 2.5 mg IH TID PRN 07/26/18 [History] Albuterol Sulfate [Ventolin Hfa] 1 puff IH Q6H PRN 07/26/18 [History] Budesonide [Pulmicort Flexhaler 90mcg] 2 puff IH BID 07/26/18 [History] Mirtazapine [Remeron] 15 - 30 mg PO HS PRN 07/26/18 [History] Multivitamin [One Daily Essential] 1 tab PO DAILY 07/26/18 [History] OLANZapine [Zyprexa] 10 mg PO HS 07/26/18 [History] OXcarbazepine [Oxcarbazepine] 300 mg PO BID 07/26/18 [History] Salmeterol Xinafoate [Serevent Diskus] 1 puff IH BID 07/26/18 [History] Tiotropium [place] [Spiriva Respimat] 1 puff IH DAILY 07/26/18 [History] clonazePAM [Klonopin] 1 mg PO TID PRN 07/26/18 [History] 3 Allergy/AdvReac Type Severity Reaction Status Date / Time No Known Allergies Allergy Verified 07/25/18 15:48 Review of Systems Psychiatric: Reports: change in appetite, anhedonia, memory loss, difficulty concentrating, hopelessness Psychiatry Exam - Constitutional Vitals: Temp Pulse Resp BP Pulse Ox 98.1 F 74 15 114/75 90 07/27/18 15:00 07/27/18 15:00 07/27/18 15:00 07/27/18 15:00 07/27/18 15:00 Results - Labs Labs: Laboratory Last Values WBC 3.3 K/mcL (4.3-11.1) L 07/26/18 04:04 RBC 5.13 M/mcL (3.82-4.97) H 07/26/18 04:04 Hgb 14.5 g/dL (11.5-15.4) 07/26/18 04:04 Hct 45.2 % (35.3-44.9) H 07/26/18 04:04 MCV 88.1 fL (83.0-100.0) 07/26/18 04:04 MCH 28.3 pg (28.0-33.3) 07/26/18 04:04 MCHC 32.1 g/dL (31.6-35.5) 07/26/18 04:04 RDW 15.5 % (11.5-14.5) H 07/26/18 04:04 Plt Count 160 K/mcL (140-400) 07/26/18 04:04 MPV 9.8 fL (9.4-12.4) 07/26/18 04:04 Immature Gran % 0.0 % (0-4) 07/26/18 04:04 Seg Neutrophils % 22.1 % 07/26/18 04:04 Lymphocytes % 60.0 % 07/26/18 04:04 Monocytes % 14.2 % 07/26/18 04:04 Eosinophils % 2.8 % 07/26/18 04:04 Basophils % 0.9 % 07/26/18 04:04 Neutrophils # 0.7 K/mcL (1.6-8.9) L 07/26/18 04:04 Lymphocytes # 2.0 K/mcL (0.6-4.6) 07/26/18 04:04 Monocytes # 0.5 K/mcL (0.0-1.3) 07/26/18 04:04 Eosinophils # 0.1 K/mcL (0.0-0.6) 07/26/18 04:04 Basophils # 0.0 K/mcL (0.0-0.2) 07/26/18 04:04 Sodium 139 mEq/L (136-145) 07/26/18 04:04 Potassium 4.6 mEq/L (3.5-5.1) 07/26/18 04:04 Chloride 107 mEq/L (98-107) 07/26/18 04:04 Carbon Dioxide 29 mEq/L (23-29) 07/26/18 04:04 BUN 15 mg/dL (8-23) 07/26/18 04:04 Creatinine 0.48 mg/dL (0.60-1.20) L 07/26/18 04:04 Est GFR ( Amer) > 60 (> 60) 07/26/18 04:04 Est GFR (Non-Af Amer) > 60 (> 60) 07/26/18 04:04 BUN/Creatinine Ratio 31 (6-26) H 07/26/18 04:04 Glucose 88 mg/dL (70-105) 07/26/18 04:04 Calculated Osmolality 288 (280-300) 07/26/18 04:04 Calcium 8.7 mg/dL (8.6-10.3) 07/26/18 04:04 Phosphorus 3.9 mg/dL (2.7-4.5) 07/25/18 16:21 Magnesium 2.0 mg/dL (1.6-2.6) 07/26/18 04:04 Total Bilirubin 0.5 mg/dL (0.3-1.0) 07/26/18 04:04 AST 23 Units/L (13-39) 07/26/18 04:04 ALT 11 Units/L (7-52) 07/26/18 04:04 Alkaline Phosphatase 51 Units/L (34-104) 07/26/18 04:04 Serum Total Protein 6.5 g/dL (6.4-8.9) 07/26/18 04:04 Albumin 3.5 g/dL (3.5-5.7) 07/26/18 04:04 Globulin 3.0 g/dL (2.4-3.5) 07/26/18 04:04 Albumin/Globulin Ratio 1.2 (1.1-2.2) 07/26/18 04:04 Prealbumin 15.1 mg/dL (17.0-34.0) L 07/26/18 04:04 Triglycerides 84 mg/dL (< 150) 07/26/18 04:04 Cholesterol 121 mg/dL (< 200) 07/26/18 04:04 LDL Cholesterol, Calc 52 mg/dL (0-99) 07/26/18 04:04 VLDL Cholesterol, Calc 17 mg/dL (< 31) 07/26/18 04:04 HDL Cholesterol 52 mg/dL (40-59) 07/26/18 04:04 Cholesterol/HDL Ratio 2.3 (0-4.9) 07/26/18 04:04 TSH 1.524 mcIU/mL (0.340-5.600) 07/26/18 04:04 Urine Color Dark Yellow (Yellow) 07/25/18 15:56 Urine Clarity Clear (Clear) 07/25/18 15:56 Urine pH 6.0 pH Units (5.0-8.0) 07/25/18 15:56 Ur Specific [place] 1.027 (1.010-1.025) H 07/25/18 15:56 Urine Protein Trace mg/dL (Neg-Trace) 07/25/18 15:56 Urine Glucose (UA) Normal mg/dL (Normal) 07/25/18 15:56 Urine Ketones Negative mg/dL (Negative) 07/25/18 15:56 Urine Blood Negative (Negative) 07/25/18 15:56 Urine Nitrite Negative (Negative) 07/25/18 15:56 Urine Bilirubin Small (Negative) H 07/25/18 15:56 Urine Urobilinogen Normal mg/dL (Normal) 07/25/18 15:56 Ur Leukocyte Esterase Small (Negative) H 07/25/18 15:56 Urine Microscopic RBC 5-15 per hpf (0-3) H 07/25/18 15:56 Urine Microscopic WBC 5-15 per hpf (0-3) H 07/25/18 15:56 Ur Squamous Epith Cells Many per lpf (None-Few) H 07/25/18 15:56 Urine Bacteria None Seen per hpf (None-Few) 07/25/18 15:56 Hyaline Casts None Seen per lpf (None-Few) 07/25/18 15:56 Ur Culture Indicated? NO. (NO) A 07/25/18 15:56 Salicylates < 2.5 mg/dL (15.0-30.0) L 07/25/18 16:22 Urine Opiates Screen Negative ng/mL (Iorgla=198) 07/25/18 15:56 Acetaminophen 11 mcg/mL (10-20) 07/25/18 16:22 Ur Barbiturates Screen Negative ng/mL (Oxugsq=616) 07/25/18 15:56 Ur Phencyclidine Scrn Negative ng/mL (Cutoff=25) 07/25/18 15:56 Ur Amphetamines Screen Negative ng/mL (Xtsbza=3345) 07/25/18 15:56 U Benzodiazepines Scrn Negative ng/mL (Dubbxv=613) 07/25/18 15:56 Urine Cocaine Screen Negative ng/mL (Cutoff= 300) 07/25/18 15:56 U Marijuana (THC) Screen Negative ng/mL (Cutoff = 50) 07/25/18 15:56 Ur Drug Screen Interp See Below 07/25/18 15:56 Ethyl Alcohol < 10 mg/dL (Less than 10) 07/25/18 16:22 Consult Discharge Plan - Plan Referrals: Jeana Nash MD [Family Provider] - NONE,PCP [Primary Care Provider] -
[2018-07-27] MEDS ORDERED: Albuterol 2.5 MG/3 ML NEBULIZER IH PRN (17:01)
--- NOTE | 2018-07-27 18:34 | Discharge Summary ---
Date of Encounter: 07/27/18 Time of Encounter: 09:15 - Discharge Diagnosis (1) Suicidal ideation Priority: Primary Status: Acute Assessment and Plan: Reporting on admission that she has given up and would like to , currently denies suicidal ideations. denies any intent, or plan She has been evaluated by psychiatry, he has recommended continued sitter throughout admission. Continue suicide precautions Pt will need inpatient psychiatric evaluation, [facility] staff is working on placement. Pt is medically cleared for discharged when placement is available. (2) Anorexia Priority: Secondary Status: Chronic Assessment and Plan: Rehydrated with IVF Regular diet Continue Megace 40mg po daily Nutrition consulted, they have started Magic Cups BID Psychiatry consulted, plan as above. (3) Severe malnutrition Priority: Secondary Status: Chronic Assessment and Plan: Reporting no appetite since diagnosed with SLE; decrease oral and caloric intake resulting in malnutrition also has h/o depression and anxiety, which is contributing to poor appetite Magic cup BID Megace 40mg po daily Continue regular diet. (4) Depression Priority: Secondary Status: Chronic Assessment and Plan: Continue antidepressants Mirtazapine has been added, 7.5mg po qhs Will begin to decrease Klonipin by 0.25mg po TID, currently on 1mg po TID. Plan as above Comments: Continue home medications. Remeron ordered for hs Qualifiers: Depression Type: major depressive disorder Major depression recurrence: recurrent Active/Remission status: currently active Major depression episode severity: severe Psychotic features: without psychotic features Qualified Code(s): F33.2 - Major depressive disorder, recurrent severe without psychotic features (5) DVT prophylaxis Priority: Secondary Status: Acute Assessment and Plan: Continue SQ heparin Hospital course: Please see assessment and plan for hospital course. Pt will be discharged to inpatient psychiatric facility when bed is available Discharge discussed with: patient - Time Spent with Patient Total time spent providing and/or coordinating discharge services: Less than 30 minutes - Discharge Medications Home Medications: Albuterol Neb [Proventil Neb] 2.5 mg IH TID PRN 07/26/18 [History] Albuterol Sulfate [Ventolin Hfa] 1 puff IH Q6H PRN 07/26/18 [History] Budesonide [Pulmicort Flexhaler 90mcg] 2 puff IH BID 07/26/18 [History] Multivitamin [One Daily Essential] 1 tab PO DAILY 07/26/18 [History] OLANZapine [Zyprexa] 10 mg PO HS 07/26/18 [History] OXcarbazepine [Oxcarbazepine] 300 mg PO BID 07/26/18 [History] Salmeterol Xinafoate [Serevent Diskus] 1 puff IH BID 07/26/18 [History] Tiotropium [place] [Spiriva Respimat] 1 puff IH DAILY 07/26/18 [History] Megestrol Acetate [Megace] 40 mg PO DAILY tablet 07/27/18 [Rx] Mirtazapine [Remeron] 15 mg PO HS PRN tablet 07/27/18 [Rx] clonazePAM [Klonopin] 0.75 mg PO TID 1 Days #3 tablet 07/27/18 [Rx] Allergies/Adverse Reactions: 3 Allergy/AdvReac Type Severity Reaction Status Date / Time No Known Allergies Allergy Verified 07/25/18 15:48 Date of admission: 07/25/18 19:47 Primary care physician: PCP NONE Consults: 07/26/18 13:25 Consult to Nutrition [CONS] Routine Comment: Consulting Provider: NUTRITION Reason for Dietary Consult: PO Supplementation 07/27/18 07:52 Consult to Top Bottom Attaching Machine Operator [CONS] Routine Reason for SW Consult: Will need assistance with discharge planning, please. Pt to go to inpatient psych after medically cleared. Discharging clinician: Ewa Chinchilla Anticipated date of discharge: 07/27/18 - Constitutional Vitals: Temp Pulse Resp BP Pulse Ox 98.1 F 74 15 114/75 90 07/27/18 15:00 07/27/18 15:00 07/27/18 15:00 07/27/18 15:00 07/27/18 15:00 General appearance: Present: cooperative, A&O X 3, pleasant, no acute distress, underweight, answers questions appropriately Exam: As above - Head Head exam: Present: atraumatic, normocephalic - Eye Eye exam: Present: normal appearance, PERRL, conjuntiva pink, sclera anicteric Pupils: Present: PERRL - Neck Neck exam general surgery: Present: supple, trachea midline. Absent: lymphadenopathy, tenderness - Respiratory Respiratory exam: Present: CTAB. Absent: accessory muscle use, rales, respiratory distress, rhonchi, wheezes - Cardiovascular Cardiovascular exam: Present: RRR, +S1, +S2. Absent: diastolic murmur, gallop, rubs, systolic murmur - GI/Abdominal GI/Abdominal exam: Present: normal bowel sounds, soft. Absent: distended, hepatomegaly, tenderness - Extremities Exam Extremities exam: Present: normal capillary refill, normal inspection, warm, radial pulses palpable and symmetrical. Absent: calf tenderness, cyanotic, pedal edema, tenderness - Neurological Exam Neurological exam: Present: alert, oriented X3, no focal deficits. Absent: facial droop, speech deficit - Skin Skin exam: Present: dry, intact, normal color, warm. Absent: rash - Patient Status Disposition: Home, Self-Care Condition: Good Functional capacity at discharge: independent ambulation Overall status at discharge: patient is progressing back to baseline - Discharge Instructions Follow Up With: Jeana Nash MD [Family Provider] - NONE,PCP [Primary Care Provider] - - Diet and Activity Activity: increase activity as tolerated Diet: advance to your usual diet
[2018-07-27] MEDS: clonazePAM 0.5 MG TABLET PO SCH ×2 (19:54→20:45)
[2018-07-27] MEDS: Nicotine 14 MG PATCH.TD24 TD SCH (20:43)
[2018-07-27] MEDS: OXcarbazepine 150 MG TABLET PO SCH (20:47)
[2018-07-27] MEDS: Melatonin 3 MG TABLET PO SCH (20:47)
[2018-07-27] MEDS ORDERED: OLANZapine 10 MG TAB.RAPDIS PO SCH (21:00)
[2018-07-27] MEDS: Beclomethasone 80mcg MDI IH SCH (21:46)
[2018-07-27] MEDS: Albuterol 2.5 MG/3 ML NEBULIZER IH SCH (21:46)
[2018-07-28] MEDS: Albuterol 2.5 MG/3 ML NEBULIZER IH SCH ×3 (03:54→15:13)
[2018-07-28] MEDS: *HR* Heparin 5,000 UNIT/ML VIAL SQ SCH (05:24)
--- NOTE | 2018-07-28 07:51 | Electrocardiograph Report ---
[place] [id number] Test Date: 2018-07-25 Pat Name: Mary Godfrey Department: 113 Room: 3B22 Gender: F Hospital Housekeeper: : 1955 Requested By: Horace Yadav Order Number: [id number] Reading MD: Es Cedeno Measurements Intervals [place] Rate: 68 P: 82 MN: 142 QRS: 128 QRSD: 75 T: -47 QT: 413 QTc: 431 Interpretive Statements Possible right and left arm leads reversed please repeat ECG Electronically Signed On 07-28-2018 7:49:27 EDT by Es Cedeno
[2018-07-28] MEDS ORDERED: Multivit/Ca/Min/Fe/FA 1 TAB TABLET PO SCH (09:00)
[2018-07-28] MEDS ORDERED: Tiotropium 18 MCG inhalation IH SCH (10:00)
[2018-07-28] MEDS: clonazePAM 0.5 MG TABLET PO SCH ×2 (10:18→15:10)
[2018-07-28] MEDS: OXcarbazepine 150 MG TABLET PO SCH (10:18)
[2018-07-28] MEDS ORDERED: 0.9 % Sodium Chloride 250 ML IVC ONE (10:18)
[2018-07-28] MEDS: Beclomethasone 80mcg MDI IH SCH (11:22)
--- NOTE | 2018-07-28 11:55 | Internal Med Progress Note ---
Hospitalist Progress Note - Encounter Date of Encounter: 07/28/18 Time of Encounter: 10:50 - Subjective Interval History: Patient was seen and assessed at bedside at 1050 AM. She is alert, awake, oriented, pleasant, engaging. Today pt states that she is feeling "ok" and states that [place] is too far from home and she does not want to go. Pt is aware that this is where we were able to get her placed and verbalized understanding. She denies any headache, nausea vomiting, diarrhea, vision changes, neck pain, chest pain, shortness of breath, abdominal pain, peripheral edema, or dizziness. - Exam Vitals: Temp Pulse Resp BP Pulse Ox 97.8 F 80 20 88/59 95 07/28/18 08:15 07/28/18 08:15 07/28/18 08:15 07/28/18 08:15 07/28/18 08:15 Exam: Normal exam. General: Pt resting quietly on bed, no distress. Patient is cachectic and frail appearing. Skin: pwd, no rashes, lesions, redness Neurological: Pt is alert and awake, oriented x 3, Speech is clear, PERRLA, EOMI , no nystagmus, no pronator drift. strength equal x 4 extremities HEENT: mucous mumbranes moist, no conjuctival pallor Neck: supple, no tracheal deviation, no lymphadenopathy, tenderness, no thyromegaly Heart: S1S2 heard without gallops, clicks, murmurs, no bradycardia or tachycardia, pt has no peripheral edema, pedal and radial pulses palpable bilaterally. Lungs: clear throughout without wheezing, rales, or ronchi, respirations are unlabored Abdomen: soft and non tender with bowel sound present, no hepatomegaly. Psych: Normal affect with good eye contact - Assessment and Plan (1) Suicidal ideation Current Visit: Yes Status: Acute Assessment and Plan: Reporting on admission that she has given up and would like to , still denies suicidal ideations. She has been evaluated by psychiatry, he has recommended continued sitter throughout admission. Continue suicide precautions, sitter remains at bedside. Pt will need inpatient psychiatric evaluation, Pt to be placed at [facility] unit. NEWSPAPER PHOTOJOURNALIST working on placement. Pt is medically cleared for discharged when placement is available. (2) Anorexia Current Visit: Yes Status: Chronic Assessment and Plan: Regular diet Continue Megace 40mg po daily Nutrition consulted, they have started Magic Cups BID Psychiatry consulted, plan as above. (3) Severe malnutrition Current Visit: Yes Status: Chronic Assessment and Plan: Reporting no appetite since diagnosed with SLE; decreased oral and caloric intake resulting in malnutrition also has h/o depression and anxiety, which is contributing to poor appetite Magic cup BID Megace 40mg po daily Continue regular diet. (4) Depression Current Visit: Yes Status: Chronic Assessment and Plan: Continue antidepressants Mirtazapine has been added, 7.5mg po qhs Will begin to decrease Klonipin by 0.25mg po TID, currently on 1mg po TID. Day . Plan as above (5) DVT prophylaxis Current Visit: Yes Status: Acute Assessment and Plan: Continue SQ heparin, encourage ambulation. - Time Spent with Patient Total time spent is greater than 50% in coordination of care (as documented) at patient's floor/unit and/or counseling patient: less than 15 minutes Plan of Care Discussed with: patient Internal Medicine: Result - Labs CBC & Chem 7: 07/26/18 04:04 07/26/18 04:04 - Impressions Impressions Head CT 07/27/18 20:15 IMPRESSION: No acute intracranial abnormality. D/ / Marce Osorio Cha, MD / Marce Osorio Cha, MD Interpreting Provider: Marce Osorio Cha, MD Consult Discharge Plan - Plan Referrals: Jeana Nash MD [Family Provider] - NONE,PCP [Primary Care Provider] - (4) Depression Qualifiers: Depression Type: major depressive disorder Major depression recurrence: recurrent Active/Remission status: currently active Major depression episode severity: severe Psychotic features: without psychotic features Qualified Code (s): F33.2 - Major depressive disorder, recurrent severe without psychotic features
--- NOTE | 2018-07-28 13:23 | Consult Note ---
Date of Encounter: 07/28/18 Time of Encounter: 13:00 Assessment & Recommendation (1) Major depressive disorder, recurrent severe without psychotic features Current visit: Yes Status: Acute History of Present Illness Patient: known to practice within the last 3 years Requesting Physician: Roland Martinez MD Reason for consult: I can't remember stuff, I want my Klonopin and sleeping pill History of present illness: Ms. Godfrey is a 62 year old female Chief complaint I want stem eye Klonopin. I want my sleeping pills. I am eating better History of present illness. The patient was seen previously she is now eating better. She no longer requires IV or parenteral nutrition and she is more cooperative. The patient still is involved in arguments about where she will be hospitalized but agreed to be hospitalized on 1 a day. The patient was able to get up and walk around the room. She had lunch tray delivered and was ready to eat it. She indicates that her appetite is better now that she has Megace. The patient is also been started on mirtazapine. The patient reports a history of memory problems.. CC: Roland Martinez MD Past Med Surg Social Fam HX - Past Medical History Medical history: COPD - Past Surgical History Surgical History: no surgical history - Social History Smoking Status: Current every day smoker Smokeless Tobacco Status: No Alcohol use: none Drug use: none - Family History Mother History Unknown: Yes Father History Unknown: Yes (+ FH w depression/anxiety) Medications & Allergies Albuterol Neb [Proventil Neb] 2.5 mg IH TID PRN 07/26/18 [History] Albuterol Sulfate [Ventolin Hfa] 1 puff IH Q6H PRN 07/26/18 [History] Budesonide [Pulmicort Flexhaler 90mcg] 2 puff IH BID 07/26/18 [History] Multivitamin [One Daily Essential] 1 tab PO DAILY 07/26/18 [History] OLANZapine [Zyprexa] 10 mg PO HS 07/26/18 [History] OXcarbazepine [Oxcarbazepine] 300 mg PO BID 07/26/18 [History] Salmeterol Xinafoate [Serevent Diskus] 1 puff IH BID 07/26/18 [History] Tiotropium [place] [Spiriva Respimat] 1 puff IH DAILY 07/26/18 [History] Megestrol Acetate [Megace] 40 mg PO DAILY tablet 07/27/18 [Rx] Mirtazapine [Remeron] 15 mg PO HS PRN tablet 07/27/18 [Rx] clonazePAM [Klonopin] 0.75 mg PO TID 1 Days #3 tablet 07/27/18 [Rx] 3 Allergy/AdvReac Type Severity Reaction Status Date / Time No Known Allergies Allergy Verified 07/25/18 15:48 Review of Systems Psychiatric: Reports: change in appetite, anhedonia, memory loss, difficulty concentrating, hopelessness Psychiatry Exam - Constitutional Vitals: Temp Pulse Resp BP Pulse Ox 98.3 F 76 18 90/60 90 07/28/18 12:28 07/28/18 12:28 07/28/18 12:28 07/28/18 12:28 07/28/18 12:28 General appearance: age & developmentally appropriate, thin - Musculoskeletal Gait: slow Station: relaxed Strength & Tone: normal for patient - Psychiatric Patient Orientation: Yes Person, Yes Time, Yes Place, Yes Circumstance Level of alertness: Alert Behavior: calm Psychomotor activity: Slowed Eye Contact: Maintains Eye Contact Mood Description: Irritable Affect description: dysphoric Speech Volume: Soft/Quiet Speech pattern: normal rate Language & Vocabulary: consistent with education Thought Process: Logical, Perseveration, Confabulation Thought Content: Yes Suicidal ideation Perceptual Disturbances: Yes Reacting to internal stimuli, No Auditory hallucinations, No Visual hallucinations Memory Description: Immediate Impaired, Recent Impaired Patient Reliability: Questionable Historian Fund of knowledge: Yes average Intelligence Estimate: Average Judgment: Limited Insight: Minimal Results - Labs Labs: Laboratory Last Values WBC 3.3 K/mcL (4.3-11.1) L 07/26/18 04:04 RBC 5.13 M/mcL (3.82-4.97) H 07/26/18 04:04 Hgb 14.5 g/dL (11.5-15.4) 07/26/18 04:04 Hct 45.2 % (35.3-44.9) H 07/26/18 04:04 MCV 88.1 fL (83.0-100.0) 07/26/18 04:04 MCH 28.3 pg (28.0-33.3) 07/26/18 04:04 MCHC 32.1 g/dL (31.6-35.5) 07/26/18 04:04 RDW 15.5 % (11.5-14.5) H 07/26/18 04:04 Plt Count 160 K/mcL (140-400) 07/26/18 04:04 MPV 9.8 fL (9.4-12.4) 07/26/18 04:04 Immature Gran % 0.0 % (0-4) 07/26/18 04:04 Seg Neutrophils % 22.1 % 07/26/18 04:04 Lymphocytes % 60.0 % 07/26/18 04:04 Monocytes % 14.2 % 07/26/18 04:04 Eosinophils % 2.8 % 07/26/18 04:04 Basophils % 0.9 % 07/26/18 04:04 Neutrophils # 0.7 K/mcL (1.6-8.9) L 07/26/18 04:04 Lymphocytes # 2.0 K/mcL (0.6-4.6) 07/26/18 04:04 Monocytes # 0.5 K/mcL (0.0-1.3) 07/26/18 04:04 Eosinophils # 0.1 K/mcL (0.0-0.6) 07/26/18 04:04 Basophils # 0.0 K/mcL (0.0-0.2) 07/26/18 04:04 Sodium 139 mEq/L (136-145) 07/26/18 04:04 Potassium 4.6 mEq/L (3.5-5.1) 07/26/18 04:04 Chloride 107 mEq/L (98-107) 07/26/18 04:04 Carbon Dioxide 29 mEq/L (23-29) 07/26/18 04:04 BUN 15 mg/dL (8-23) 07/26/18 04:04 Creatinine 0.48 mg/dL (0.60-1.20) L 07/26/18 04:04 Est GFR ( Amer) > 60 (> 60) 07/26/18 04:04 Est GFR (Non-Af Amer) > 60 (> 60) 07/26/18 04:04 BUN/Creatinine Ratio 31 (6-26) H 07/26/18 04:04 Glucose 88 mg/dL (70-105) 07/26/18 04:04 Calculated Osmolality 288 (280-300) 07/26/18 04:04 Calcium 8.7 mg/dL (8.6-10.3) 07/26/18 04:04 Phosphorus 3.9 mg/dL (2.7-4.5) 07/25/18 16:21 Magnesium 2.0 mg/dL (1.6-2.6) 07/26/18 04:04 Total Bilirubin 0.5 mg/dL (0.3-1.0) 07/26/18 04:04 AST 23 Units/L (13-39) 07/26/18 04:04 ALT 11 Units/L (7-52) 07/26/18 04:04 Alkaline Phosphatase 51 Units/L (34-104) 07/26/18 04:04 Serum Total Protein 6.5 g/dL (6.4-8.9) 07/26/18 04:04 Albumin 3.5 g/dL (3.5-5.7) 07/26/18 04:04 Globulin 3.0 g/dL (2.4-3.5) 07/26/18 04:04 Albumin/Globulin Ratio 1.2 (1.1-2.2) 07/26/18 04:04 Prealbumin 15.1 mg/dL (17.0-34.0) L 07/26/18 04:04 Triglycerides 84 mg/dL (< 150) 07/26/18 04:04 Cholesterol 121 mg/dL (< 200) 07/26/18 04:04 LDL Cholesterol, Calc 52 mg/dL (0-99) 07/26/18 04:04 VLDL Cholesterol, Calc 17 mg/dL (< 31) 07/26/18 04:04 HDL Cholesterol 52 mg/dL (40-59) 07/26/18 04:04 Cholesterol/HDL Ratio 2.3 (0-4.9) 07/26/18 04:04 TSH 1.524 mcIU/mL (0.340-5.600) 07/26/18 04:04 Urine Color Dark Yellow (Yellow) 07/25/18 15:56 Urine Clarity Clear (Clear) 07/25/18 15:56 Urine pH 6.0 pH Units (5.0-8.0) 07/25/18 15:56 Ur Specific Concrete 1.027 (1.010-1.025) H 07/25/18 15:56 Urine Protein Trace mg/dL (Neg-Trace) 07/25/18 15:56 Urine Glucose (UA) Normal mg/dL (Normal) 07/25/18 15:56 Urine Ketones Negative mg/dL (Negative) 07/25/18 15:56 Urine Blood Negative (Negative) 07/25/18 15:56 Urine Nitrite Negative (Negative) 07/25/18 15:56 Urine Bilirubin Small (Negative) H 07/25/18 15:56 Urine Urobilinogen Normal mg/dL (Normal) 07/25/18 15:56 Ur Leukocyte Esterase Small (Negative) H 07/25/18 15:56 Urine Microscopic RBC 5-15 per hpf (0-3) H 07/25/18 15:56 Urine Microscopic WBC 5-15 per hpf (0-3) H 07/25/18 15:56 Ur Squamous Epith Cells Many per lpf (None-Few) H 07/25/18 15:56 Urine Bacteria None Seen per hpf (None-Few) 07/25/18 15:56 Hyaline Casts None Seen per lpf (None-Few) 07/25/18 15:56 Ur Culture Indicated? NO. (NO) A 07/25/18 15:56 Salicylates < 2.5 mg/dL (15.0-30.0) L 07/25/18 16:22 Urine Opiates Screen Negative ng/mL (Zngjdq=851) 07/25/18 15:56 Acetaminophen 11 mcg/mL (10-20) 07/25/18 16:22 Ur Barbiturates Screen Negative ng/mL (Sfsmru=546) 07/25/18 15:56 Ur Phencyclidine Scrn Negative ng/mL (Cutoff=25) 07/25/18 15:56 Ur Amphetamines Screen Negative ng/mL (Wgmrsh=4885) 07/25/18 15:56 U Benzodiazepines Scrn Negative ng/mL (Zrambf=408) 07/25/18 15:56 Urine Cocaine Screen Negative ng/mL (Cutoff= 300) 07/25/18 15:56 U Marijuana (THC) Screen Negative ng/mL (Cutoff = 50) 07/25/18 15:56 Ur Drug Screen Interp See Below 07/25/18 15:56 Ethyl Alcohol < 10 mg/dL (Less than 10) 07/25/18 16:22 - Impressions Impressions Head CT 07/27/18 20:15 IMPRESSION: No acute intracranial abnormality. D/ / Marce Osorio Cha, MD / Marce Osorio Cha, MD Interpreting Provider: Marce Osorio Cha, MD Consult Discharge Plan - Plan Referrals: Jeana Nash MD [Family Provider] - NONE,PCP [Primary Care Provider] -
[2018-07-28 14:26] VITALS: BP 98/66
--- NOTE | 2018-07-30 16:23 | Event Note ---
Date of Encounter: 07/28/18 Time of Encounter: 10:00 Pt was to be discharged to outside psychiatric inpatient facility, but it was taking longer than expected. Due to a disaster in the community and need for medical beds, pt was taken to 1A to wait for her bed at the other inpatient facility.
[2018-07-30] MEDS ORDERED: clonazePAM 0.5 MG TABLET PO SCH (17:05)
--- NOTE | 2018-08-02 14:06 | Electrocardiograph Report ---
[address] [address] Test Date: 2018-07-27 Pat Name: Mary Godfrey Department: 113 Room: 3B22 Gender: F Bdc Manager: : 1955 Requested By: Ewa Chinchilla Order Number: [id number] Reading MD: Michael Salmeron Measurements Intervals [place] Rate: 68 P: 21 RI: 120 QRS: 124 QRSD: 86 T: -18 QT: 395 QTc: 412 Interpretive Statements SINUS RHYTHM POOR R WAVE PROGRESSION INFERIOR ST-T CHANGES POSSIBLY DUE TO ISCHEMIA Electronically Signed On 08-02-2018 14:05:09 EDT by Michael Salmeron
== END 2018-07-28 16:20 ==
LOC: 3BNU 15:32 → EMEROOARM 15:32 → 3BNU 20:15
PROVIDERS: ADMIT Family Medicine; ATTEND Family Medicine

== ENCOUNTER 2018-07-28 16:30 | Inpatient (IN) ==
[2018-07-28] MEDS ORDERED: *HR* LORazepam 1 MG TABLET PO PRN (17:14)
[2018-07-28] MEDS ORDERED: *HR* LORazepam 2 MG/ML VIAL IM PRN (17:14)
[2018-07-28] MEDS ORDERED: hydrOXYzine pamoate 25 MG CAPSULE PO PRN (17:14)
[2018-07-28] MEDS ORDERED: Haloperidol Lactate 5 MG/ML VIAL IM PRN (17:14)
[2018-07-28] MEDS ORDERED: Ibuprofen 400 MG TABLET PO PRN (17:14)
[2018-07-28] MEDS ORDERED: MOM Conc 10 ML UD.LIQ PO PRN (17:14)
[2018-07-28] MEDS ORDERED: Albuterol 2.5 MG/3 ML NEBULIZER IH PRN (17:17)
[2018-07-28] MEDS ORDERED: Mirtazapine 15 MG TABLET PO PRN (17:17)
[2018-07-28] MEDS: OXcarbazepine 150 MG TABLET PO SCH (20:10)
[2018-07-28] MEDS: clonazePAM 1 MG TABLET PO SCH (20:11)
[2018-07-28] MEDS: OLANZapine 10 MG TAB.RAPDIS PO SCH (20:11)
[2018-07-28] MEDS: SALMETEROL XINAFOATE IH SCH (20:14)
[2018-07-28] MEDS: Beclomethasone 80mcg MDI IH SCH (22:04)
[2018-07-29] MEDS: Multivit/Ca/Min/Fe/FA 1 TAB TABLET PO SCH (09:05)
[2018-07-29] MEDS: OXcarbazepine 150 MG TABLET PO SCH ×2 (09:05→20:56)
[2018-07-29] MEDS: clonazePAM 1 MG TABLET PO SCH ×3 (09:05→20:58)
[2018-07-29] MEDS: Tiotropium 18 MCG inhalation IH SCH (09:09)
[2018-07-29] MEDS: SALMETEROL XINAFOATE IH SCH ×2 (09:11→20:59)
[2018-07-29] MEDS: Nicotine 14 MG PATCH.TD24 TD SCH (10:31)
[2018-07-29] MEDS: Beclomethasone 80mcg MDI IH SCH ×2 (10:46→21:04)
--- NOTE | 2018-07-29 16:57 | Psychiatry History & Physical ---
Date of Encounter: 07/29/18 Time of Encounter: 16:15 History of Present Illness Patient Stated Chief Complaint: I have anxiety I did not want to eat I did not care if I Medicare Admission Attestation: For traditional Medicare patients the provided hospital inpatient services are reasonable and necessary and in the case of services not specified as inpatient -only under 42 CFR 419.22 (n), that they are appropriately provided as inpatient services in accordance 42 CFR 412.3. For Critical Access Hospital the patient may reasonably be expected to be discharged or transferred to a hospital within 96 hours after admission to the Critical Access Hospital. Admitted From: Intrahospital Transfer Plans for Post Hospital Care: Home History of Present Illness: Ms. Godfrey is a 62 year old female This patient is known to me and the reader is referred to the previous consults. Her chief complaint was that she was not eating and she risk of by in adequate intake. History of present illness I completed several consults but basically the patient has major depressive disorder severe without psychosis she had been at home and not eating she had somatic concern. In the process of her evaluation she had significant impairment in attention and concentration. I felt that this might be due to the medicine clonazepam as she is underweight and now 62 years old. My plan was to admit her and adjust her medications to treat depression optimally to avoid benzodiazepine toxicity and to improve nutrition. As part of her evaluation she had a head CT which showed atrophy. There were 2 punctate lesions in the basal ganglia bilaterally that were suggestive of idiopathic calcification. These were read as small vessel disease Past Med Surg Social Fam HX - Past Medical History Medical history: COPD - Past Surgical History Surgical History: no surgical history - Social History Smoking Status: Current every day smoker Smokeless Tobacco Status: No Alcohol use: none Drug use: none Medications & Allergies Albuterol Neb [Proventil Neb] 2.5 mg IH TID PRN 07/26/18 [History] Albuterol Sulfate [Ventolin Hfa] 1 puff IH Q6H PRN 07/26/18 [History] Budesonide [Pulmicort Flexhaler 90mcg] 2 puff IH BID 07/26/18 [History] Multivitamin [One Daily Essential] 1 tab PO DAILY 07/26/18 [History] OLANZapine [Zyprexa] 10 mg PO HS 07/26/18 [History] OXcarbazepine [Oxcarbazepine] 300 mg PO BID 07/26/18 [History] Salmeterol Xinafoate [Serevent Diskus] 1 puff IH BID 07/26/18 [History] Tiotropium [place] [Spiriva Respimat] 1 puff IH DAILY 07/26/18 [History] Megestrol Acetate [Megace] 40 mg PO DAILY tablet 07/27/18 [Rx] Mirtazapine [Remeron] 15 mg PO HS PRN tablet 07/27/18 [Rx] clonazePAM [Klonopin] 0.75 mg PO TID 1 Days #3 tablet 07/27/18 [Rx] 3 Allergy/AdvReac Type Severity Reaction Status Date / Time lorazepam [From Ativan] AdvReac Agitated Verified 07/29/18 16:47 morphine AdvReac Rash Verified 07/29/18 16:47 Review of Systems Constitutional: Reports: weight change Respiratory: Reports: cough Psychiatric: Reports: depression, change in appetite, anhedonia, memory loss Exam - HEENT Head exam IM: Present: atraumatic ENT exam IM: Present: mucous membranes dry - Neurological Neurological exam: Present: CN II-XII intact - Skin Skin exam IM: Present: dry - Constitutional Vitals: Temp Pulse Resp BP 98.1 F 85 16 102/71 07/29/18 09:29 07/29/18 09:29 07/29/18 09:29 07/29/18 09:29 General appearance: age & developmentally appropriate, well-groomed, well- nourished - Musculoskeletal Gait: normal Station: relaxed Strength & Tone: normal for patient - Psychiatric Patient Orientation: Yes Person, Yes Time, Yes Place Level of alertness: Alert Behavior: calm, impulsive Psychomotor activity: Normal Eye Contact: Maintains Eye Contact Mood Description: Depressed Affect description: congruent with mood, dysphoric, inappropriate to situation, incongruent with mood Speech Volume: Normal Speech pattern: normal rate, normal rhythm, normal tone, fluent, spontaneous Language & Vocabulary: consistent with education Thought Process: Linear, Goal Oriented Thought Content: No Suicidal ideation, No Homicidal ideation, No Overt delusions , Yes Preoccupation Perceptual Disturbances: No Auditory hallucinations, No Visual hallucinations Attention Span Ability: Capable of Focused Attention Memory Description: Immediate Impaired, Recent Impaired Patient Reliability: Reliable Historian Fund of knowledge: Yes abstraction ability, Yes average, Yes aware of current events Intelligence Estimate: Average Judgment: Limited Insight: Minimal Assessment and Plan (1) Suicidal ideation Current visit: No Status: Acute Plan: Admit inpatient for safety and stabilization Risks, benefits, side effects, alternatives discussed w/pt: Yes Patient agreeable to treatment: Yes Plans for Post Hospital Care: Home Estimated Length of Stay (Days): 7 (2) Severe malnutrition Current visit: No Status: Chronic (3) Major depressive disorder, recurrent severe without psychotic features Current visit: No Status: Acute Plan: Admit inpatient for safety and stabilization, Close observation, Secure weapons Risks, benefits, side effects, alternatives discussed w/pt: Yes Patient agreeable to treatment: Yes Plans for Post Hospital Care: Home
[2018-07-29] MEDS: OLANZapine 10 MG TAB.RAPDIS PO SCH (20:57)
[2018-07-29] MEDS: Mag Hydrox/Al Hydrox/Simeth 30 ML UDC PO PRN (21:05)
[2018-07-30] MEDS: Multivit/Ca/Min/Fe/FA 1 TAB TABLET PO SCH (08:48)
[2018-07-30] MEDS: OXcarbazepine 150 MG TABLET PO SCH ×2 (08:48→20:57)
[2018-07-30] MEDS: clonazePAM 1 MG TABLET PO SCH ×2 (08:48→20:56)
[2018-07-30] MEDS: Nicotine 14 MG PATCH.TD24 TD SCH (08:50)
[2018-07-30] MEDS: Beclomethasone 80mcg MDI IH SCH (08:53)
[2018-07-30] MEDS: SALMETEROL XINAFOATE IH SCH (08:54)
[2018-07-30] MEDS: Tiotropium 18 MCG inhalation IH SCH (08:55)
--- NOTE | 2018-07-30 14:25 | Psychiatry Progress Note ---
Date of Encounter: 07/30/18 Time of Encounter: 14:15 Subjective Interval history: ID: The patient is a 8-year-old white female she prefers to be called Pattie. Chief complaint I wish I was home but I get again some weight what is that medicine you gave me help me gain weight. History of present illness. The patient has been on the unit and her sister has called them. Her sisters seeking power of patent attorney and is already acting as a de facto payee. The patient has trouble keeping track of all of her medicines and she has complained about the reduced clonazepam she is meeting frequent visits to the nurses station to ask about that. Her answers been changed to increase in the patient's been able to tolerate oxazepam. She would like to get off the clonazepam in order to be on oxazepam. This might help her memory. The patient would like to be home. Her depressive symptoms [place] around what she can do for herself. History of present illness or 2. The patient has had depressive symptoms she had passive suicidal ideation and she had difficulty with ADLs however this may be the representation of frontal lobe disorder. The patient is disinhibited in her sedation. I reviewed the head CT with the patient. She was able to appreciate the atrophy which is prominent in the frontal regions. Discussed the volume loss. I did discuss the abnormal imaging in the basal ganglia. This may reflect the possibility of idiopathic calcification of the basal ganglia. This can be seen in a disease called Fahr's disease. The patient does not have significant difficulties in walking or extrapyramidal signs or parkinsonism. The patient is significantly underweight and he must be concerned about the possibility of super mesenteric artery syndrome. Thus our efforts to have her adjust to another benzodiazepine include the use of both Seroquel and Zyprexa the patient has requested increase mirtazapine to 30 mg. Nonetheless there is the potential for risk of falls. I will decrease clonazepam to 0.5 mg twice a day. Our efforts will be to try and reduce and discontinue this medicine as the patient is 62 years old and are he has memory problems. The oxazepam or serax is at 10 mg 3 times per day. Thus the diagnosis of I69.811 has been given Review of Systems Psychiatric: Reports: depression, change in appetite, anhedonia, memory loss Results - Vital Signs Vital Signs: Temp Pulse Resp BP 98.6 F 83 14 106/78 07/30/18 08:56 07/30/18 08:56 07/30/18 08:56 07/30/18 08:56 Assessment and Plan (1) Suicidal ideation Current visit: No Status: Acute Plan: Continue hospitalization, Close observation, Secure weapons Risks, benefits, side effects, alternatives discussed w/pt: Yes Patient agreeable to treatment: Yes (2) Severe malnutrition Current visit: No Status: Chronic Plan: Monitor sleep, Monitor appetite (3) Major depressive disorder, recurrent severe without psychotic features Current visit: No Status: Acute Plan: Continue hospitalization, Suicide Precautions per unit protocol, Encourage participation in unit milieu, Monitor sleep, Secure weapons Risks, benefits, side effects, alternatives discussed w/pt: Yes Patient agreeable to treatment: Yes (4) Memory deficit following other cerebrovascular disease Current visit: Yes Status: Acute Plan: Continue hospitalization, Close observation, Group Therapy, Family/ Supportive other meeting Risks, benefits, side effects, alternatives discussed w/pt: Yes Patient agreeable to treatment: Yes (5) Anorexia Current visit: No Status: Chronic Plan: Monitor appetite, Family/Supportive other meeting Risks, benefits, side effects, alternatives discussed w/pt: Yes Patient agreeable to treatment: Yes Consult Discharge Plan - Plan Referrals: [facility] [Other] (The above appointment is with Dr. Debbi Spencer for primary healthcare follow-up.) [facility] [place] [Outside] (The above appointment is with Patrizia outpatient mental health counselor/shelter case manager. You will also see Judy Mathews for outpatient psychiatric assessment and medication management services on 08/17/2018 at 8:00 AM.) Psychiatry Exam - Constitutional Vitals: Temp Pulse Resp BP 98.6 F 83 14 106/78 07/30/18 08:56 07/30/18 08:56 07/30/18 08:56 07/30/18 08:56 General appearance: age & developmentally appropriate, well-groomed, well- nourished - Musculoskeletal Gait: normal Station: relaxed Strength & Tone: normal for patient - Psychiatric Patient Orientation: Yes Person, Yes Time, Yes Place Level of alertness: Alert Behavior: calm, cooperative Psychomotor activity: Normal Eye Contact: Maintains Eye Contact Mood Description: Depressed, Labile Affect description: congruent with mood, full range, incongruent with mood Speech Volume: Normal Speech pattern: normal rate, normal rhythm, normal tone, fluent, spontaneous Language & Vocabulary: consistent with education Thought Process: Linear, Circumstantial, Tangential Thought Content: No Suicidal ideation, No Homicidal ideation, No Overt delusions Perceptual Disturbances: No Auditory hallucinations, No Visual hallucinations Attention Span Ability: Capable of Focused Attention Memory Description: Recent Impaired Patient Reliability: Questionable Historian Fund of knowledge: Yes abstraction ability, Yes aware of current events Intelligence Estimate: Average Judgment: Limited Insight: Minimal
[2018-07-30] MEDS: OLANZapine 10 MG TAB.RAPDIS PO SCH (20:55)
[2018-07-30] MEDS: Mirtazapine 15 MG TABLET PO SCH (20:57)
[2018-07-31] MEDS: SALMETEROL XINAFOATE IH SCH ×3 (01:49→20:14)
[2018-07-31] MEDS: Beclomethasone 80mcg MDI IH SCH ×3 (02:40→20:09)
[2018-07-31] MEDS: Nicotine 14 MG PATCH.TD24 TD SCH (09:12)
[2018-07-31] MEDS: OXcarbazepine 150 MG TABLET PO SCH ×2 (09:13→20:11)
[2018-07-31] MEDS: Cyanocobalamin (B-12) 1,000 MCG TABLET PO SCH (09:13)
[2018-07-31] MEDS: clonazePAM 1 MG TABLET PO SCH ×2 (09:14→20:11)
[2018-07-31] MEDS: Cholecalciferol (D-3) 1,000 UNIT TABLET PO SCH (09:14)
[2018-07-31] MEDS: Thiamine (B-1) 100 MG TABLET PO SCH (09:14)
[2018-07-31] MEDS: Multivit/Ca/Min/Fe/FA 1 TAB TABLET PO SCH (09:14)
--- NOTE | 2018-07-31 11:11 | Psychiatry Progress Note ---
Date of Encounter: 07/31/18 Time of Encounter: 11:08 Subjective Interval history: Client is doing a little better. Irritable and depressed but not suicidal. Had more of a passive wish. Taking Ensure and making herself eat small amounts. On multiple meds to help stimulate appetite including Megace, Remeron , Seroquel, and Zyprexa. Client reports at home she smokes and drinks coffee all day. May eat a bowl of cereal but nothing else. Knows she will not prepare meals for herself. Plans to live with sister at time of discharge so that her PO intake and med compliance can be monitored. Very frail with no energy. Still needs a couple of days. Review of Systems Constitutional: Reports: weakness Eyes: Denies: eye pain, vision change Ears, Nose, Throat: Denies: ear pain, throat pain, dental pain, hearing loss, congestion Cardiovascular: Denies: chest pain, palpitations, dyspnea on exertion Respiratory: Denies: cough, dyspnea, wheezes Gastrointestinal: Reports: other Musculoskeletal: Reports: other Neurological: Denies: headache, weakness, numbness, memory loss Psychiatric: Reports: depression, change in appetite, anhedonia, memory loss Results - Vital Signs Vital Signs: Temp Pulse Resp BP 97.8 F 83 20 140/88 07/31/18 09:00 07/31/18 09:00 07/31/18 09:00 07/31/18 09:00 Assessment and Plan (1) Major depressive disorder, recurrent severe without psychotic features Current visit: No Status: Acute Plan: Continue hospitalization, Close observation, Suicide Precautions per unit protocol, Encourage participation in unit milieu, Group Therapy, Monitor sleep, Monitor appetite Risks, benefits, side effects, alternatives discussed w/pt: Yes Patient agreeable to treatment: Yes (2) Failure to thrive Current visit: No Status: Acute Plan: Continue hospitalization, Close observation, Suicide Precautions per unit protocol, Encourage participation in unit milieu, Group Therapy, Monitor sleep, Monitor appetite Risks, benefits, side effects, alternatives discussed w/pt: Yes Patient agreeable to treatment: Yes Qualifiers: Failure to thrive age range: in adult Qualified Code(s): R62.7 - Adult failure to thrive Consult Discharge Plan - Plan Referrals: [facility] [Other] (The above appointment is with Dr. Debbi Spencer for primary healthcare follow-up.) [facility] [place] [Outside] - 08/17/18 8:00 am (The above appointment is with Judy Mathews for outpatient psychiatric assessment and medication management services. You will also see Patrizia, your window caser/ counselor following your appointment with the prescriber.) Psychiatry Exam - Constitutional Vitals: Temp Pulse Resp BP 97.8 F 83 20 140/88 07/31/18 09:00 07/31/18 09:00 07/31/18 09:00 07/31/18 09:00 General appearance: malnourished, thin - Musculoskeletal Gait: normal Station: relaxed Strength & Tone: normal for patient - Psychiatric Patient Orientation: Yes Person, Yes Time, Yes Place Level of alertness: Alert Behavior: calm, cooperative Psychomotor activity: Normal Eye Contact: Maintains Eye Contact Mood Description: Depressed, Irritable Affect description: congruent with mood, tearful Speech Volume: Normal Speech pattern: normal rate, normal rhythm, normal tone, fluent, spontaneous Language & Vocabulary: consistent with education Thought Process: Linear Thought Content: No Suicidal ideation, No Homicidal ideation, No Overt delusions Perceptual Disturbances: No Auditory hallucinations, No Visual hallucinations Attention Span Ability: Capable of Focused Attention Memory Description: Grossly Intact Patient Reliability: Reliable Historian Fund of knowledge: Yes abstraction ability, Yes aware of current events Intelligence Estimate: Average Judgment: Limited Insight: Partial
[2018-07-31] MEDS: Tiotropium 18 MCG inhalation IH SCH (11:22)
[2018-07-31] MEDS: Mag Hydrox/Al Hydrox/Simeth 30 ML UDC PO PRN (17:21)
[2018-07-31] MEDS: Mirtazapine 15 MG TABLET PO SCH (20:10)
[2018-07-31] MEDS: OLANZapine 10 MG TAB.RAPDIS PO SCH (20:11)
[2018-08-01] MEDS: Beclomethasone 80mcg MDI IH SCH ×2 (09:01→20:30)
[2018-08-01] MEDS: Nicotine 14 MG PATCH.TD24 TD SCH (09:01)
[2018-08-01] MEDS: Cyanocobalamin (B-12) 1,000 MCG TABLET PO SCH (09:02)
[2018-08-01] MEDS: Cholecalciferol (D-3) 1,000 UNIT TABLET PO SCH (09:02)
[2018-08-01] MEDS: Thiamine (B-1) 100 MG TABLET PO SCH (09:02)
[2018-08-01] MEDS: Multivit/Ca/Min/Fe/FA 1 TAB TABLET PO SCH (09:02)
[2018-08-01] MEDS: clonazePAM 1 MG TABLET PO SCH (09:02)
[2018-08-01] MEDS: OXcarbazepine 150 MG TABLET PO SCH ×2 (09:03→20:30)
[2018-08-01] MEDS: SALMETEROL XINAFOATE IH SCH ×2 (09:05→20:30)
--- NOTE | 2018-08-01 10:10 | Psychiatry Progress Note ---
Date of Encounter: 08/01/18 Time of Encounter: 10:06 Subjective Interval history: Seems a little better today. Slightly perkier. Still struggling with PO intake but making efforts to eat. Tried to eat too much at one time last night and threw up. Discussed eating small amounts more often as opposed to trying to eat any kind of meal. Stomach is shrunk down and she cannot tolerate much food at a time. Still plans to live with sister at time of discharge. Has family support although they are critical of her eating and she may not respond well to too much nagging. Likes to talk and responds well to interactions from staff. Denies SI. Did not talk about passive wish today. Has some more future orientation than before. Review of Systems Constitutional: Reports: weakness Eyes: Denies: eye pain, vision change Ears, Nose, Throat: Denies: ear pain, throat pain, dental pain, hearing loss, congestion Cardiovascular: Denies: chest pain, palpitations, dyspnea on exertion Respiratory: Denies: cough, dyspnea, wheezes Gastrointestinal: Reports: nausea, vomiting Musculoskeletal: Reports: other Neurological: Reports: weakness Psychiatric: Reports: depression, change in appetite, anhedonia, memory loss Results - Vital Signs Vital Signs: Temp Pulse Resp BP 98.3 F 75 16 145/85 08/01/18 09:00 08/01/18 09:00 08/01/18 09:00 08/01/18 09:00 Assessment and Plan (1) Major depressive disorder, recurrent severe without psychotic features Current visit: No Status: Acute Plan: Continue hospitalization, Close observation, Suicide Precautions per unit protocol, Encourage participation in unit milieu, Group Therapy, Monitor sleep, Monitor appetite Risks, benefits, side effects, alternatives discussed w/pt: Yes Patient agreeable to treatment: Yes (2) Failure to thrive Current visit: No Status: Acute Plan: Continue hospitalization, Close observation, Suicide Precautions per unit protocol, Encourage participation in unit milieu, Group Therapy, Monitor sleep, Monitor appetite Risks, benefits, side effects, alternatives discussed w/pt: Yes Patient agreeable to treatment: Yes Qualifiers: Failure to thrive age range: in adult Qualified Code(s): R62.7 - Adult failure to thrive Consult Discharge Plan - Plan Referrals: [facility] [Other] (The above appointment is with Dr. Debbi Spencer for primary healthcare follow-up.) [facility] [place] [Outside] - 08/17/18 8:00 am (The above appointment is with Judy Mathews for outpatient psychiatric assessment and medication management services. You will also see Patrizia, your case picker/ counselor following your appointment with the prescriber.) Psychiatry Exam - Constitutional Vitals: Temp Pulse Resp BP 98.3 F 75 16 145/85 08/01/18 09:00 08/01/18 09:00 08/01/18 09:00 08/01/18 09:00 General appearance: malnourished - Musculoskeletal Gait: normal Station: relaxed Strength & Tone: normal for patient - Psychiatric Patient Orientation: Yes Person, Yes Time, Yes Place Level of alertness: Alert Behavior: calm, cooperative Psychomotor activity: Normal Eye Contact: Maintains Eye Contact Mood Description: Irritable Affect description: congruent with mood Speech Volume: Normal Speech pattern: normal rate, normal rhythm, normal tone, fluent, spontaneous Language & Vocabulary: consistent with education Thought Process: Linear Thought Content: No Suicidal ideation, No Homicidal ideation, No Overt delusions Perceptual Disturbances: No Auditory hallucinations, No Visual hallucinations Attention Span Ability: Capable of Focused Attention Memory Description: Grossly Intact Patient Reliability: Reliable Historian Fund of knowledge: Yes abstraction ability, Yes aware of current events Intelligence Estimate: Average Judgment: Fair Insight: Partial
[2018-08-01] MEDS: Tiotropium 18 MCG inhalation IH SCH (10:52)
[2018-08-01] MEDS: OLANZapine 10 MG TAB.RAPDIS PO SCH (20:28)
[2018-08-01] MEDS: clonazePAM 0.5 MG TABLET PO SCH (20:29)
[2018-08-01] MEDS: Mirtazapine 15 MG TABLET PO SCH (20:30)
[2018-08-02] MEDS: clonazePAM 0.5 MG TABLET PO SCH ×2 (09:06→20:15)
[2018-08-02] MEDS: Cholecalciferol (D-3) 1,000 UNIT TABLET PO SCH (09:07)
[2018-08-02] MEDS: Multivit/Ca/Min/Fe/FA 1 TAB TABLET PO SCH (09:07)
[2018-08-02] MEDS: Cyanocobalamin (B-12) 1,000 MCG TABLET PO SCH (09:07)
[2018-08-02] MEDS: Thiamine (B-1) 100 MG TABLET PO SCH (09:09)
[2018-08-02] MEDS: OXcarbazepine 150 MG TABLET PO SCH ×2 (09:09→20:16)
[2018-08-02] MEDS: Nicotine 14 MG PATCH.TD24 TD SCH (09:10)
[2018-08-02] MEDS: Beclomethasone 80mcg MDI IH SCH ×2 (09:20→20:14)
[2018-08-02] MEDS: Tiotropium 18 MCG inhalation IH SCH (09:23)
[2018-08-02] MEDS: SALMETEROL XINAFOATE IH SCH ×2 (09:24→20:21)
--- NOTE | 2018-08-02 09:40 | Psychiatry Progress Note ---
Date of Encounter: 08/02/18 Time of Encounter: 09:38 Subjective Interval history: Still depressed but doing a little better. Drinking Ensure with all meals. Trying to eat small amounts several times a day. No vomiting yesterday. Keeping in contact with family. Still intends to stay with sister at time of discharge. Looking forward to smoking again. Not ready to quit. Irritable over not having cigarettes this past week. Once she starts smoking again her appetite will be suppressed so she needs to be a little stronger prior to discharge. Review of Systems Constitutional: Reports: weakness Eyes: Denies: eye pain, vision change Ears, Nose, Throat: Denies: ear pain, throat pain, dental pain, hearing loss, congestion Cardiovascular: Denies: chest pain, palpitations, dyspnea on exertion Respiratory: Denies: cough, dyspnea, wheezes Gastrointestinal: Reports: nausea Musculoskeletal: Reports: other Neurological: Reports: weakness Psychiatric: Reports: depression, change in appetite, anhedonia, memory loss Results - Vital Signs Vital Signs: Temp Pulse Resp BP 99.6 F 84 18 125/78 08/01/18 19:52 08/01/18 19:52 08/01/18 19:52 08/01/18 19:52 Assessment and Plan (1) Major depressive disorder, recurrent severe without psychotic features Current visit: No Status: Acute Plan: Continue hospitalization, Close observation, Suicide Precautions per unit protocol, Encourage participation in unit milieu, Group Therapy, Monitor sleep, Monitor appetite Risks, benefits, side effects, alternatives discussed w/pt: Yes Patient agreeable to treatment: Yes (2) Failure to thrive Current visit: No Status: Acute Plan: Continue hospitalization, Close observation, Suicide Precautions per unit protocol, Encourage participation in unit milieu, Group Therapy, Monitor sleep, Monitor appetite Risks, benefits, side effects, alternatives discussed w/pt: Yes Patient agreeable to treatment: Yes Qualifiers: Failure to thrive age range: in adult Qualified Code(s): R62.7 - Adult failure to thrive Consult Discharge Plan - Plan Referrals: [facility] [Other] (The above appointment is with Dr. Debbi Spencer for primary healthcare follow-up.) [facility] [place] [Outside] - 08/17/18 8:00 am (The above appointment is with Judy Mathews for outpatient psychiatric assessment and medication management services. You will also see Patrizia, your case resolution specialist/ counselor following your appointment with the prescriber.) Psychiatry Exam - Constitutional Vitals: Temp Pulse Resp BP 99.6 F 84 18 125/78 08/01/18 19:52 08/01/18 19:52 08/01/18 19:52 08/01/18 19:52 General appearance: malnourished - Musculoskeletal Gait: normal Station: relaxed Strength & Tone: normal for patient - Psychiatric Patient Orientation: Yes Person, Yes Time, Yes Place Level of alertness: Alert Behavior: calm, cooperative Psychomotor activity: Normal Eye Contact: Maintains Eye Contact Mood Description: Depressed, Irritable Affect description: congruent with mood Speech Volume: Normal Speech pattern: normal rate, normal rhythm, normal tone, fluent, spontaneous Language & Vocabulary: consistent with education Thought Process: Linear, Goal Oriented Thought Content: No Suicidal ideation, No Homicidal ideation, No Overt delusions Perceptual Disturbances: No Auditory hallucinations, No Visual hallucinations Attention Span Ability: Capable of Focused Attention Memory Description: Grossly Intact Patient Reliability: Reliable Historian Fund of knowledge: Yes abstraction ability, Yes aware of current events Intelligence Estimate: Average Judgment: Fair Insight: Partial
[2018-08-02] MEDS: Mirtazapine 15 MG TABLET PO SCH (20:16)
[2018-08-02] MEDS: OLANZapine 10 MG TAB.RAPDIS PO SCH (20:17)
[2018-08-03] MEDS: clonazePAM 0.5 MG TABLET PO SCH ×2 (08:54→20:47)
[2018-08-03] MEDS: Multivit/Ca/Min/Fe/FA 1 TAB TABLET PO SCH (08:54)
[2018-08-03] MEDS: Cyanocobalamin (B-12) 1,000 MCG TABLET PO SCH (08:54)
[2018-08-03] MEDS: Thiamine (B-1) 100 MG TABLET PO SCH (08:55)
[2018-08-03] MEDS: OXcarbazepine 150 MG TABLET PO SCH ×2 (08:55→20:45)
[2018-08-03] MEDS: Cholecalciferol (D-3) 1,000 UNIT TABLET PO SCH (08:55)
[2018-08-03] MEDS: SALMETEROL XINAFOATE IH SCH ×2 (08:56→20:49)
[2018-08-03] MEDS: Beclomethasone 80mcg MDI IH SCH ×2 (08:56→20:49)
[2018-08-03] MEDS: Nicotine 14 MG PATCH.TD24 TD SCH (08:56)
[2018-08-03] MEDS: Tiotropium 18 MCG inhalation IH SCH (08:57)
--- NOTE | 2018-08-03 11:35 | Psychiatry Progress Note ---
Date of Encounter: 08/03/18 Time of Encounter: 10:45 Subjective Interval history: Pt is a 71 yo, , female, x1, x1, with one daughter (33 ) who presents for mood and depression. Pt noted that she feels she is improving. Pt noted she is optimistic to return home "to my sisters. Pt denied any side effects to current medications. Pt noted she felt safe and comfortable on the unit. Pt noted she feels safe and comfortable for D/C home tomorrow. Pt was in agreement with treatment plan. Pt noted that she is doing pretty good today. Pt noted she slept 6 hours last night. Pt noted her appetite is okay....I got a little sick to my stomach today. Pt rated her depression a 6, on a scale of zero to ten with ten being the worst and zero being none. Pt rate her anxiety a 6, on the same scale. Pt denied any visual hallucinations, however noted chronic auditory hallucinations of voices stating the end of time is near. Pt denied any thoughts to harm herself or anyone else. Tobacco: Denies Alcohol: Denies Street: Denies Caffeine: Denies 1.Interval hx 2.Continue current medications 3.Review current labs 4.Pt had an opportunity to ask questions and discuss current treatment plan. 5.Supportive therapy was provided 6.Pt encouraged to consider group or individual therapy 7.Pt was in agreement with treatment plan. 8.Pt was educated on the risks benefits and side effects of current medications. 9. Coordinate with pt's sister for discharge home 10. Follow up with all scheduled appointments 11. Take all medications as prescribed 12. abstain from any alcohol or illicit substances Review of Systems Constitutional: Denies: fever, chills, weakness, weight change Eyes: Denies: eye pain, vision change Ears, Nose, Throat: Denies: ear pain, throat pain, dental pain, hearing loss, congestion Cardiovascular: Denies: chest pain, palpitations, dyspnea on exertion Respiratory: Denies: cough, dyspnea, wheezes Gastrointestinal: Denies: abdominal pain, nausea, vomiting, diarrhea, constipation Musculoskeletal: Denies: joint swelling, joint pain Neurological: Denies: headache, weakness, numbness, memory loss Psychiatric: Reports: depression, change in appetite, anhedonia, memory loss Results - Vital Signs Vital Signs: Temp Pulse Resp BP 99.6 F 78 16 125/78 04/18 09:00 08/03/18 09:35 08/03/18 09:35 08/03/18 09:35 Assessment and Plan (1) Suicidal ideation Current visit: No Status: Acute Plan: Continue hospitalization, Close observation, Suicide Precautions per unit protocol, Encourage participation in unit milieu, Group Therapy, Monitor sleep, Monitor appetite Risks, benefits, side effects, alternatives discussed w/pt: Yes Patient agreeable to treatment: Yes (2) Anorexia Current visit: No Status: Chronic Plan: Continue hospitalization, Close observation, Suicide Precautions per unit protocol, Encourage participation in unit milieu, Group Therapy, Monitor sleep, Monitor appetite Risks, benefits, side effects, alternatives discussed w/pt: Yes Patient agreeable to treatment: Yes (3) Major depressive disorder, recurrent severe without psychotic features Current visit: No Status: Acute Plan: Continue hospitalization, Close observation, Suicide Precautions per unit protocol, Encourage participation in unit milieu, Group Therapy, Monitor sleep, Monitor appetite Risks, benefits, side effects, alternatives discussed w/pt: Yes Patient agreeable to treatment: Yes (4) Memory deficit following other cerebrovascular disease Current visit: Yes Status: Acute Plan: Continue hospitalization, Close observation, Suicide Precautions per unit protocol, Encourage participation in unit milieu, Group Therapy, Monitor sleep, Monitor appetite Risks, benefits, side effects, alternatives discussed w/pt: Yes Patient agreeable to treatment: Yes Consult Discharge Plan - Plan Referrals: [facility] [Other] - 08/09/18 1:00 pm (The above appointment is with Dr. Debbi Spencer for primary healthcare follow-up.) [facility] [place] [Outside] - 08/17/18 8:00 am (The above appointment is with Judy Mathews for outpatient psychiatric assessment and medication management services. You will also see Patrizia, your watch caser/ counselor following your appointment with the prescriber.) Psychiatry Exam - Constitutional Vitals: Temp Pulse Resp BP 99.6 F 78 16 /78 08/03/18 09:00 08/03/18 09:35 08/03/18 09:35 08/03/18 09:35 General appearance: age & developmentally appropriate, well-groomed, well- nourished - Musculoskeletal Gait: normal Station: relaxed Strength & Tone: normal for patient - Psychiatric Patient Orientation: Yes Person, Yes Time, Yes Place Level of alertness: Alert Behavior: calm, cooperative Psychomotor activity: Normal Eye Contact: Maintains Eye Contact Mood Description: Euthymic/stable Affect description: congruent with mood, full range Speech Volume: Normal Speech pattern: normal rate, normal rhythm, normal tone, fluent, spontaneous Language & Vocabulary: consistent with education Thought Process: Linear, Goal Oriented Thought Content: No Suicidal ideation, No Homicidal ideation, No Overt delusions Perceptual Disturbances: No Auditory hallucinations, No Visual hallucinations Attention Span Ability: Capable of Focused Attention Memory Description: Grossly Intact Patient Reliability: Reliable Historian Fund of knowledge: Yes abstraction ability, Yes aware of current events Intelligence Estimate: Average Judgment: Limited Insight: Partial
[2018-08-03] MEDS: Mirtazapine 15 MG TABLET PO SCH (20:47)
[2018-08-03] MEDS: OLANZapine 10 MG TAB.RAPDIS PO SCH (20:48)
[2018-08-04] MEDS: Beclomethasone 80mcg MDI IH SCH (08:51)
[2018-08-04] MEDS: Multivit/Ca/Min/Fe/FA 1 TAB TABLET PO SCH (08:52)
[2018-08-04] MEDS: Nicotine 14 MG PATCH.TD24 TD SCH (08:52)
[2018-08-04] MEDS: Thiamine (B-1) 100 MG TABLET PO SCH (08:52)
[2018-08-04] MEDS: Cholecalciferol (D-3) 1,000 UNIT TABLET PO SCH (08:53)
[2018-08-04] MEDS: Cyanocobalamin (B-12) 1,000 MCG TABLET PO SCH (08:53)
[2018-08-04] MEDS: OXcarbazepine 150 MG TABLET PO SCH (08:53)
[2018-08-04] MEDS: clonazePAM 0.5 MG TABLET PO SCH (08:53)
[2018-08-04] MEDS: SALMETEROL XINAFOATE IH SCH (08:56)
[2018-08-04] MEDS: Tiotropium 18 MCG inhalation IH SCH (08:57)
[2018-08-04 09:20] VITALS: BP 109/71
--- NOTE | 2018-08-04 09:38 | Discharge Summary ---
Date of Encounter: 08/04/18 Time of Encounter: 08:30 Diagnosis - Discharge Diagnosis (1) Suicidal ideation Status: Acute (2) Anorexia Status: Chronic (3) Major depressive disorder, recurrent severe without psychotic features Status: Acute (4) Memory deficit following other cerebrovascular disease Status: Acute Medications - Discharge Medications Prescriptions: Dicyclomine [Bentyl] 20 mg PO Q6H PRN #60 capsule PRN Reason: Abdominal Cramping hydrOXYzine pamoate [HydrOXYzine Pamoate] 25 mg PO TID PRN #30 capsule PRN Reason: Anxiety Mirtazapine [Remeron] 30 mg PO HS #60 tablet OLANZapine [Zyprexa] 10 mg PO HS #30 tablet Oxazepam [Serax] 10 mg PO TID 30 Days #90 capsule OXcarbazepine [Oxcarbazepine] 300 mg PO BID #30 tablet Quetiapine Fumarate [Seroquel] 100 mg PO HS #30 tablet Albuterol Neb [Proventil Neb] 2.5 mg IH TID PRN 07/26/18 [History] Albuterol Sulfate [Ventolin Hfa] 1 puff IH Q6H PRN 07/26/18 [History] Budesonide [Pulmicort Flexhaler 90mcg] 2 puff IH BID 07/26/18 [History] Multivitamin [One Daily Essential] 1 tab PO DAILY 07/26/18 [History] Salmeterol Xinafoate [Serevent Diskus] 1 puff IH BID 07/26/18 [History] Tiotropium [place] [Spiriva Respimat] 1 puff IH DAILY 07/26/18 [History] Megestrol Acetate [Megace] 40 mg PO DAILY tablet 07/27/18 [Rx] Dicyclomine [Bentyl] 20 mg PO Q6H PRN #60 capsule 08/04/18 [Rx] Mirtazapine [Remeron] 30 mg PO HS #60 tablet 08/04/18 [Rx] OLANZapine [Zyprexa] 10 mg PO HS #30 tablet 08/04/18 [Rx] OXcarbazepine [Oxcarbazepine] 300 mg PO BID #30 tablet 08/04/18 [Rx] Oxazepam [Serax] 10 mg PO TID 30 Days #90 capsule 08/04/18 [Rx] Quetiapine Fumarate [Seroquel] 100 mg PO HS #30 tablet 08/04/18 [Rx] hydrOXYzine pamoate [HydrOXYzine Pamoate] 25 mg PO TID PRN #30 capsule 08/04/18 [Rx] 3 Allergy/AdvReac Type Severity Reaction Status Date / Time lorazepam [From Ativan] AdvReac Agitated Verified 07/29/18 16:47 morphine AdvReac Rash Verified 07/29/18 16:47 Provider Date of admission: 07/28/18 16:30 Primary care physician: PCP NONE Discharging clinician: Ian Workman Psychiatry Exam - Constitutional Vitals: Temp Pulse Resp BP 98.0 F 81 16 109/71 08/04/18 09:00 08/04/18 09:00 08/04/18 09:00 08/04/18 09:00 General appearance: age & developmentally appropriate, well-groomed, well- nourished - Musculoskeletal Gait: normal Station: relaxed Strength & Tone: normal for patient - Psychiatric Patient Orientation: Yes Person, Yes Time, Yes Place Level of alertness: Alert Behavior: calm, cooperative Psychomotor activity: Normal Eye Contact: Maintains Eye Contact Mood Description: Euthymic/stable Affect description: congruent with mood, full range Speech Volume: Normal Speech pattern: normal rate, normal rhythm, normal tone, fluent, spontaneous Language & Vocabulary: consistent with education Thought Process: Linear, Goal Oriented Thought Content: No Suicidal ideation, No Homicidal ideation, No Overt delusions Perceptual Disturbances: No Auditory hallucinations, No Visual hallucinations Attention Span Ability: Capable of Focused Attention Memory Description: Grossly Intact Patient Reliability: Reliable Historian Fund of knowledge: Yes abstraction ability, Yes aware of current events Intelligence Estimate: Average Judgment: Limited Insight: Partial Hospital Course Hospital course: Pt is a 62 yo, , female, x1, x1, with one daughter (33 ) who presents for mood, anorexia and depression. Pt noted that she feels she is improving. Pt noted she is optimistic to return home "to my sisters. Pt denied any side effects to current medications. Pt noted she felt safe and comfortable for discharge from [address] Pt has returned to 76lbs and continues to gain weight slowly. Pt noted she feels safe and comfortable to discharge to her sisters. Pt was in agreement with treatment plan. Pt noted that she is doing pretty good today. Pt noted she slept 8-9 hours last night. Pt noted her appetite is better improving slowly. Pt rated her depression a 6, on a scale of zero to ten with ten being the worst and zero being none. Pt rate her anxiety a 6, on the same scale. Pt denied any auditory or visual hallucinations, Pt denied any thoughts to harm herself or anyone else. Patient noted a significant reeducation in her depression and anxiety, along with increase in appetite and weight during her stay at [address] Pt noted that she slowly improved to the point that she was comfortable and safe to D/C home. Pt noted she felt her medications were working well and denied any current side effects. Treatment team encouraged Pt to stay out of bed and try to find activities to do, verbalized understanding. pt reported that she felt safe on the unit and comfortable for discharge to her sisters. Pt Denied suicidal/homicidal ideations, denied any problems or concerns with medications or side effects. PT voiced progression towards treatment goals and was updated on her treatment plan during visit today. Denied any immediate needs or concerns. Pt denied any access to guns or weapons Pt throughout her stay on in psych pt felt like her medications were working and felt comfortable being discharged on these medications. Pt was advised to take all medications as prescribed, follow up with all scheduled appointments and abstain from any alcohol or illicit substances. Pt was in agreement. Pt felt safe and comfortable to be discharged to her sisters and follow up with [facility]. Pt was very optimistic about her D/C. Pt felt safe and comfortable for D/C. The patient was educated primarily by verbal means about her diagnoses and their manifestations in her life. The option for treatment including group individual therapy programming was offered to her and the use of medications with all their potential risks, benefits, and side-effects were discussed with the pt at length. Pt was given the opportunity to ask questions and she participated in the treatment and planning process. Pt felt ready and eager to be discharged from the from the unit to be dishcarged to her sisters. Pt felt she was safe for this disposition. Pt was considered to be able to participate in informed consent and decision-making with respect to medical, legal and financial issues at the time of her discharge from the [address] [place] [address]. 1.Interval hx 2.Continue current medications 3.Review current labs 4.Pt had an opportunity to ask questions and discuss current treatment plan. 5.Supportive therapy was provided 6.Pt encouraged to consider group or individual therapy 7.Pt was in agreement with treatment plan. 8.Pt was educated on the risks benefits and side effects of current medications. 9. Coordinate with pt's sister for discharge home 10. Follow up with all scheduled appointments 11. Take all medications as prescribed 12. abstain from any alcohol or illicit substances Time spent discussing smoking cessation with patient: 3 to 10 minutes Does patient wish to continue nicotine replacement upon disc: No - Time Spent with Patient Total time spent providing and/or coordinating discharge services: Greater than 30 minutes Assessment and Plan - Patient/Caregiver Discharge Instructions Activity: resume usual activities as tolerated Diet: regular diet - Follow up Plan Follow up with: [facility] [Other] - 08/09/18 1:00 pm (The above appointment is with Dr. Debbi Spencer for primary healthcare follow-up.) [facility] [Outside] - 08/17/18 8:00 am (The above appointment is with Judy Mathews for outpatient psychiatric assessment and medication management services. You will also see Patrizia, your adult protective caseworker/ counselor following your appointment with the prescriber.) Functional capacity at discharge: independent ambulation Overall status at discharge: Stable Disposition: Home, Self-Care Quality - Multiple Antipsychotics Patient discharged on 2 or more antipsychotic medications: Yes (PT unable to be stabilized on one antipsychotic due to exacerbation of GI) - Justification Documentation of: History 3 failed trials of monotherapy (Haloperidol, olanzapine, quetiapine.) Procedures - Procedures Procedures: Medication Management, Crisis Stabilization, Supportive Therapy, Group Therapy, Psychoeducational Therapy
[2018-08-04] MEDS ORDERED: Albuterol 2.5 MG/3 ML NEBULIZER IH SCH (16:00)
== END 2018-08-04 16:05 | disposition home or self-care (01) | DRG 885 ==
LOC: 1ANU 16:30
PROVIDERS: ADMIT Psychiatry & Neurology Forensic Psychiatry; ATTEND Psychiatry & Neurology Forensic Psychiatry